=== PATIENT | female | born 1985 | race Caucasian/White ===

== ENCOUNTER → 2016-12-01 | Outpatient (CLI) | payer MEDICAID, SELFPAY ==
[~2016-12-01] MED LIST: BUPR50TA PO; CELE20TA PO; DEPA500T2 PO; GABA-282 PO; GABA-283 PO; HYDR-3363 PO; HYDRO50TAB PO; LITH300C PO; MIREIUD IU; MIRT15TA3 PO; MIRT30TA3 PO; NO MEDS; QUET400T PO; SERO1TAB PO; SERO200T PO; TOPA100T12 PO; TRAZO50TA PO
== END ==
LOC: M OUTALCOH 12:25
PROVIDERS: ATTEND Psychiatry & Neurology Psychiatry
DX: Z13.9 Encounter for screening, unspecified (principal); F11.20 Opioid dependence, uncomplicated

== ENCOUNTER → 2016-12-26 | Outpatient (RCR) | payer MEDICAID | LOC: M OUTALCOH 12-15 11:20 | PROVIDERS: ATTEND Psychiatry & Neurology Psychiatry | DX: F11.20 Opioid dependence, uncomplicated (principal); Z72.0 Tobacco use ==

== ENCOUNTER 2017-01-25 16:00 | Outpatient (RCR) | payer MEDICAID, SELFPAY ==
[~2017-01-25 16:00] MED LIST changes: -BUPR50TA PO; -GABA-282 PO; -HYDRO50TAB PO; -MIREIUD IU; -MIRT15TA3 PO; -MIRT30TA3 PO; -QUET400T PO; -TOPA100T12 PO; -TRAZO50TA PO
== END 2017-01-26 ==
LOC: M OUTALCOH 16:00
PROVIDERS: ATTEND Psychiatry & Neurology Psychiatry
DX: F11.20 Opioid dependence, uncomplicated (principal); Z72.0 Tobacco use

== ENCOUNTER 2017-02-21 10:37 | Inpatient (IN) | payer OTHER, SELFPAY ==
[~2017-02-21] VITALS: Ht 175.3 cm; Wt 82.0 kg
[2017-02-21] MEDS ORDERED: MIRT30TA3 PO (10:59)
[2017-02-21] MEDS ORDERED: QUET400T PO (10:59)
[2017-02-21] MEDS ORDERED: MIREIUD IU (11:00)
[2017-02-21 12:02] LABS: CONTROL LINE HCG INT CTR LINE PRESENT
[2017-02-21 12:04] LABS: MEAN CORPUSCULAR HEMOGLOBIN 31.9 pg (27.0-33.0); MEAN CORPUSCULAR HGB CONC 33.7 g/dl (32.0-36.5); MEAN CORPUSCULAR VOLUME 94.5 fl (80.0-96.0); RED CELL DISTRIBUTION WIDTH 12.1 % (11.5-14.5); WHITE BLOOD COUNT 13.7 10^3/uL (4.0-10.0)
[2017-02-21 12:19] LABS: METHADONE URINE NEGATIVE (NEGATIVE)
[2017-02-21 12:20] LABS: ALBUMIN 4.2 GM/DL (3.2-5.2); ALKALINE PHOSPHATASE 74 U/L (45-117); ALT/SGPT 21 U/L (12-78); ANION GAP 7 MEQ/L (8-16); AST/SGOT 21 U/L (15-37); BILIRUBIN,DIRECT 0.2 MG/DL (0.0-0.2); BILIRUBIN,TOTAL 0.6 MG/DL (0.2-1.0); BLOOD UREA NITROGEN 15 MG/DL (7-18); CALCIUM LEVEL 9.2 MG/DL (8.5-10.1); CARBON DIOXIDE LEVEL 25 MEQ/L (21-32); CHLORIDE LEVEL 102 MEQ/L (98-107); CREATININE FOR GFR 0.97 MG/DL (0.55-1.02); GLOMERULAR FILTRATION RATE > 60.0 (>60); GLUCOSE, FASTING 95 MG/DL (70-105); POTASSIUM SERUM 4.4 MEQ/L (3.5-5.1); SODIUM LEVEL 134 MEQ/L (136-145); TOTAL PROTEIN 7.7 GM/DL (6.4-8.2)
[2017-02-21] MEDS ORDERED: ACETAMINOPHEN TAB 650MG DOSE (2X325MG) PO PRN (13:45)
[2017-02-21] MEDS ORDERED: MAALOX 30 ML SUSP *UDC PO PRN (13:45)
[2017-02-21] MEDS ORDERED: MOM 30ML SUSPENSION UDC PO PRN (13:45)
[2017-02-21] MEDS ORDERED: traZODone 50 MG TAB PO PRN (13:45)
[2017-02-21] MEDS ORDERED: SERTRALINE HCL 50 MG TAB PO ONE (14:00)
[2017-02-21] MEDS ORDERED: HYDR-3363 PO (14:11)
[2017-02-21 14:45] VITALS: BP 108/68
[2017-02-21] MEDS: NICOTINE 21MG/24HR 1 EA TRANSDERMAL TD SCH (16:09)
[2017-02-21] MEDS: MIRTAZAPINE 15 MG TAB PO SCH (20:33)
[2017-02-21] MEDS: QUEtiapine FUMARATE 200 MG TAB PO SCH (20:33)
[2017-02-22 06:56] VITALS: BP 106/56
[2017-02-22] MEDS: NICOTINE 21MG/24HR 1 EA TRANSDERMAL TD SCH (08:35)
--- NOTE | 2017-02-22 08:59 | HPEPDOC ---
[facility] Medical History & Physical Date of Admission Feb 21, 2017 History and Physical PCP: Román HOLMAN ATTENDING: Dr. Sixto Montjeo HPI: 31yoF admitted to [facility] for unspecified depressive disorder, being medically examined today. No acute medical complaints today. Denies any fevers, chills, weakness, fatigue, FLOREZ, CP, SOB, cough, palpitations, abdominal pain, N/V /D or changes in bowel or bladder habits. PMHx: Schizophrenia Bipolar disorder Anxiety Depression ADHD PTSD Insomnia H/O Substance use H/O Bulemia Self mutilation poor dentition PSHX: D&C x 2 Mirena SOCHX: Resides in: [place] with a friend, recently released from incarceration. Marital Status: Kids: 4 children surrendered for adoption. Employment: unemployed Tobacco use: 1 ppd ETOH: denies Illicit Drugs: heroin, last used 05/13. Marijuana in the past. IV Drug Use: heroin. Tattoos done unprofessionally: Denies FAMHX: Mother: , related to choking per pt. Father: Unknown Siblings: 2 sisters Alive, well. One brother related to epilepsy Children: Unknown ROS: As noted in HPI, otherwise 11pt ROS of systems reviewed and remarkable only for LMP irregular related to Mirena. PE: GEN: 31 yo F, appears stated age. Well-nourished, well developed. No acute distress. Alert and oriented x 3. Rapid, pressured speech. HEENT: Normocephalic, atraumatic. Pupils are equal, round, and reactive to light. Extraocular movements are intact. No nystagmus appreciated. Sclera are nonicteric. Conjunctiva without injection. Nose midline. Nasal turbinates without bogginess. EACs both patent BL. TMs both visualized and meraz with good cone of light, no bulging or erythema. No facial asymmetry. Moist mucous membranes. Dentition poor. Pharynx pink and moist, no cobblestoning. Neck supple , trachea midline. No lymphadenopathy or thyromegaly appreciated. CHEST: Regular rate and rhythm, +S1, +S2 LUNGS: Clear to auscultation bilaterally. No wheezes, rales, or rhonchi. Breathing appears symmetric and easy. Patient is speaking in full sentences. No accessory muscle use. ABD: Round, soft, non-tender, non-distended. +Bowel sounds throughout. No rebound or guarding. No costovertebral angle tenderness. EXT: Pulses 2+ bilaterally dorsalis pedis and radial. No lower extremity edema appreciated. SKIN: [place], dry, warm. Capillary refill <2sec. No rashes. NEURO: Alert and oriented x 3. Cranial nerves III-XII are intact. No focal deficits appreciated. EKG: Pending. A&P: 31yoF admitted to [facility] for unspecified depressive disorder 1. Psych. Plan per Psychiatry. Obtain baseline EKG to assure the safety of psychiatric medications as they can prolong the QT interval. 2. Nicotine dependence. Patch available. 3. History of IVDU. Patient agrees to HIV and hepatitis screening. 4. Follow up with PCP on discharge. 5. H/O Substance use. Per psychiatry. 6. Poor dentition. No issues at this time. Arrange dental care as outpatient. 7. Leukocytosis. Patient is afebrile. Asymptomatic. Recheck CBC in a.m. 8. Hyponatremia. Sodium is noted to be 134. Oral intake has improved. Recheck BMP. 9. History of eating disorder. Patient requests ensure with meals as sometimes she is unable to eat the food on her tray. Request dietary consult. 10. Staff member Ayse present throughout exam. Vital Signs Vital Signs Date Time Temp Pulse Resp B/P (MAP) Pulse Ox O2 Delivery O2 Flow Rate FiO2 02/22/17 06:56 98.7 62 14 106/56 (73) Room Air 02/21/17 14:45 96 Laboratory Data Labs 24H Laboratory Tests 2 02/21/17 11:13: Anion Gap 7L, Glomerular Filtration Rate > 60.0, Calcium Level 9.2, Aspartate Amino Transf (AST/SGOT) 21, Alanine Aminotransferase (ALT/SGPT) 21, Alkaline Phosphatase 74, Total Bilirubin 0.6, Direct Bilirubin 0.2, Total Protein 7.7, Albumin 4.2, Albumin/Globulin Ratio 1.20, Thyroid Stimulating Hormone (TSH) 0.552, Human Chorionic Gonadotropin, Qual NEGATIVE, Salicylates Level < 1.7L, Urine Amphetamines Screen NEGATIVE, Urine Benzodiazepines Screen NEGATIVE, Urine Opiates Screen NEGATIVE, Urine Methadone Screen NEGATIVE, Acetaminophen Level < 2.0L, Urine Barbiturates Screen NEGATIVE, Urine Phencyclidine Screen NEGATIVE, Urine Cocaine Metabolite Screen NEGATIVE, Urine Cannabinoids Screen NEGATIVE, Ethyl Alcohol Level 0.004 CBC/BMP Laboratory Tests 02/21/17 11:13 Red Blood Count 4.58, Mean Corpuscular Volume 94.5, Mean Corpuscular Hemoglobin 31.9, Mean Corpuscular Hemoglobin Concent 33.7, Red Cell Distribution Width 12.1 Home Medications Scheduled Levonorgestrel (Mirena) 20 Mcg/24 Hr Iud, 20 MCG IU ASDIRECTED Mirtazapine (Mirtazapine) 30 Mg Tab, 30 MG PO QHS Quetiapine Fumerate (Quetiapine Fumarate) 400 Mg Tab, 400 MG PO QHS Scheduled PRN Hydroxyzine HCl (Hydroxyzine HCl) 25 Mg Tab, 25 MG PO Q8H PRN for ANXIETY Allergies Coded Allergies: [place] (Verified Allergy, Intermediate, hives, 02/21/17) Propoxyphene (Verified Allergy, Mild, RASH, 10/24/14) Ibuprofen (Verified Adverse Reaction, Mild, VOMIT, 04/17/15) Morphine (Unverified Adverse Reaction, Mild, NAUSEA/ITCHING, 10/24/14) Geovanna Tong Feb 22, 2017 08:59
[2017-02-22] MEDS ORDERED: SERTRALINE HCL 50 MG TAB PO SCH (09:00)
[2017-02-22] MEDS ORDERED: buPROPion 100 MG TAB PO SCH (09:00)
[2017-02-22] MEDS: TOPIRAMATE (TopAMAX) 100 MG TAB PO SCH (11:43)
[2017-02-22] MEDS: hydrOXYzine 50 MG TAB PO PRN ×2 (11:43→18:08)
[2017-02-22] MEDS ORDERED: hydrOXYzine 50 MG TAB PO SCH (13:00)
[2017-02-22 18:00] VITALS: BP 116/61
[2017-02-22] MEDS: MIRTAZAPINE 15 MG TAB PO SCH (20:32)
[2017-02-22] MEDS: QUEtiapine FUMARATE 200 MG TAB PO SCH (20:33)
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
--- NOTE | 2017-02-22 22:15 | ECGEPIP ---
Stationary ECG Study [facility] Test Date: 2017-02-22 Pat Name: ALBAN OJEDA Department: Room: [place] [address] Gender: F Lunchroom Monitor: ANJELICA : 1985 Requested By: Geovanna Tong Order Number: [id number] Reading MD: Joel Nolasco Measurements Intervals [place] Rate: 60 P: 8 CO: 161 QRS: 81 QRSD: 88 T: 54 QT: 400 QTc: 402 Interpretive Statements SINUS RHYTHM MINIMAL EARLY REPOLARIZATION NOTED COMPARED TO THE LAST 3 TRACINGS IN THE SYSTEM, NO SIGNIFICANT CHANGES BUT SLOWER HEART RATE Electronically Signed On 02-22-2017 22:15:26 EDT by Joel Nolasco
[2017-02-23 06:18] VITALS: BP 112/57
[2017-02-23] MEDS: hydrOXYzine 50 MG TAB PO PRN ×2 (06:59→13:28)
[2017-02-23 07:13] LABS: MEAN CORPUSCULAR HEMOGLOBIN 31.5 pg (27.0-33.0); MEAN CORPUSCULAR HGB CONC 33.3 g/dl (32.0-36.5); MEAN CORPUSCULAR VOLUME 94.7 fl (80.0-96.0); RED CELL DISTRIBUTION WIDTH 12.2 % (11.5-14.5); WHITE BLOOD COUNT 6.7 10^3/uL (4.0-10.0)
[2017-02-23 07:36] LABS: ANION GAP 7 MEQ/L (8-16); BLOOD UREA NITROGEN 21 MG/DL (7-18); CALCIUM LEVEL 9.1 MG/DL (8.5-10.1); CARBON DIOXIDE LEVEL 27 MEQ/L (21-32); CHLORIDE LEVEL 106 MEQ/L (98-107); CREATININE FOR GFR 1.03 MG/DL (0.55-1.02); GLOMERULAR FILTRATION RATE > 60.0 (>60); GLUCOSE, FASTING 90 MG/DL (70-105); POTASSIUM SERUM 4.1 MEQ/L (3.5-5.1); SODIUM LEVEL 140 MEQ/L (136-145)
[2017-02-23] MEDS: buPROPion 100 MG TAB PO SCH (08:40)
[2017-02-23] MEDS: TOPIRAMATE (TopAMAX) 100 MG TAB PO SCH (08:40)
[2017-02-23] MEDS: NICOTINE 21MG/24HR 1 EA TRANSDERMAL TD SCH (08:40)
--- NOTE | 2017-02-23 14:52 | MHIPNPDOC ---
[facility] Progress Note Progress Note DATE OF SERVICE: 02/23/17 HISTORY: Pt was admitted for having suicidal thoughts, she kept having nightmares about . her mother's birthday anniversary is close and his brother the same day her mother . These have been triggers for her. 02/23/17----patient was evaluated today and she says that she feels much better since she has been taking Atarax. She stated she to Wellbutrin this morning and didn't make her nervous or jittery. She was able to recall that one of her psychiatrists at the [facility] had prescribed her gabapentin before and it wasn't good for her because it decreased her anxiety levels. She is motivated to go for treatment on Monday. She says she doesn't have any support with her family but she feels completely supported by her boyfriend. VITAL SIGNS: See below. NEW TEST RESULTS: N/A CURRENT MEDICATIONS: See below. MENTAL STATUS EXAMINATION: Patient is a 31-year old female, who is alert, dressed in hospital clothes, cooperative, with good eye contact, good hygiene and rooming. Speech: Is spontaneous and fluid. Language skills are fair. Thought processes including: Intact. Thought content: She has positive thoughts about going for rehabilitation. Abstract reasoning, and computation: Fair. Description of associations: Good Description of abnormal or psychotic thoughts: Denies auditory and visual hallucinations, denies thought delusions, denies suicidal and homicidal ideation Judgment: Improving. Insight: Improving. Orientation: Oriented 3. Recent and remote memory: Intact. Attention span and concentration: Fair. Language: Normal. Fund of knowledge: Not assessed at this time. Mood: Euthymic. Affect: And full range, appropriate, reactive and congruent to mood. DIAGNOSES: 1. Adjustment disorder with depressed mood. 2. Marijuana use disorder. 3. . ASSESSMENT: Patient has improved a lot since yesterday. Her mood and affect are brighter, her anxiety has decreased approximately 80%. He is pleasant, cooperative and she is happy and motivated because she knows she is going to rehabilitation on Monday. MANAGEMENT PLAN: Will continue on the same treatment plan, but regarding medications, gabapentin has been added, 600 mg by mouth 3 times a day, because she says it was very helpful for her when she used it before and it was prescribed by one of her psychiatrists at the community [facility] TIME SPENT: 30 minutes. Vital Signs Vital Signs Date Time Temp Pulse Resp B/P (MAP) Pulse Ox O2 Delivery O2 Flow Rate FiO2 02/23/17 06:18 98.6 63 16 112/57 (75) 02/22/17 06:56 Room Air 02/21/17 14:45 96 Laboratory Data 24H Labs Laboratory Tests 2 02/23/17 06:57: Anion Gap 7L, Glomerular Filtration Rate > 60.0, Blood Urea Nitrogen 21H, Creatinine 1.03H, Sodium Level 140, Potassium Level 4.1, Chloride Level 106, Carbon Dioxide Level 27, Calcium Level 9.1 CBC/BMP Laboratory Tests 02/23/17 06:57 Red Blood Count 4.73, Mean Corpuscular Volume 94.7, Mean Corpuscular Hemoglobin 31.5, Mean Corpuscular Hemoglobin Concent 33.3, Red Cell Distribution Width 12.2 , Calcium Level 9.1 Current Medications Current Medications Acetaminophen (Tylenol Tab) 650 mg Q6HP PRN PO HEADACHE or DISCOMFORT Last administered on 02/21/17 16:09; Start 02/21/17 at 13:45; Stop 03/23/17 at 13: 44 Al Hydrox/Mg Hydrox/Simethicone (Mylanta) 30 ml Q4HP PRN PO HEARTBURN/ INDIGESTION; Start 02/21/17 at 13:45; Stop 03/23/17 at 13:44 Bupropion HCl (Wellbutrin) 100 mg DAILY PO ; Start 02/22/17 at 09:00; Stop 02/22 at 11:26; Status DC Bupropion HCl (Wellbutrin) 100 mg DAILY PO Last administered on 02/23/17 08:40 ; Start 02/23/17 at 09:00; Stop 03/25/17 at 08:59 Gabapentin (Neurontin) 600 mg TID PO ; Start 02/23/17 at 16:00; Stop 03/25/17 at 15:59 Home Med (Med Rec Complete!) ASDIRECTED XX ; Start 02/21/17 at 14:15; Stop at 14:16; Status DC Hydroxyzine HCl (Atarax) 75 mg QID PO ; Start 02/22/17 at 13:00; Stop 02/22/17 at 13:00; Status DC Hydroxyzine HCl (Atarax) 75 mg QID PRN PO ANXIETY/AGITATION Last administered on 02/23/17 13:28; Start 02/22/17 at 13:00; Stop 03/24/17 at 12:59 Magnesium Hydroxide (Milk Of Magnesia) 30 ml DAILYPRN PRN PO CONSTIPATION; Start 02/21/17 at 13:45; Stop 03/23/17 at 13:44 Mirtazapine (Remeron) 15 mg DAILY@2100 PO Last administered on 02/22/17 20:32 ; Start 02/21/17 at 21:00; Stop 03/23/17 at 20:59 Nicotine (Nicoderm Cq 21mg) 1 patch DAILY TD Last administered on 02/23/17 08: 40; Start 02/21/17 at 09:00; Stop 03/23/17 at 08:59 Quetiapine Fumarate (SEROquel) 400 mg QHS PO Last administered on 02/22/17 20: 33; Start 02/21/17 at 21:00; Stop 03/23/17 at 20:59 Sertraline HCl (Zoloft) 50 mg QAM PO ; Start 02/22/17 at 09:00; Stop 02/22/17 at 11:17; Status DC Topiramate (TopAMAX) 100 mg DAILY PO Last administered on 02/23/17 08:40; Start 02/22/17 at 09:00; Stop 03/24/17 at 08:59 Trazodone HCl (Desyrel) 50 mg QHSP PRN PO INSOMNIA Last administered on 20:33; Start 02/21/17 at 13:45; Stop 03/23/17 at 13:44 Allergies Coded Allergies: [place] (Verified Allergy, Intermediate, hives, 02/21/17) Propoxyphene (Verified Allergy, Mild, RASH, 10/24/14) Ibuprofen (Verified Adverse Reaction, Mild, VOMIT, 04/17/15) Morphine (Unverified Adverse Reaction, Mild, NAUSEA/ITCHING, 10/24/14) SURAJ PAZ MD Feb 23, 2017 14:51
[2017-02-23] MEDS: GABAPENTIN 300 MG CAP PO SCH ×2 (15:02→20:30)
[2017-02-23 18:00] VITALS: BP 139/78
[2017-02-23] MEDS: MIRTAZAPINE 15 MG TAB PO SCH (20:30)
[2017-02-23] MEDS: QUEtiapine FUMARATE 200 MG TAB PO SCH (20:31)
[2017-02-24] MEDS: hydrOXYzine 50 MG TAB PO PRN ×2 (07:46→20:36)
[2017-02-24] MEDS: buPROPion 100 MG TAB PO SCH (08:26)
[2017-02-24] MEDS: GABAPENTIN 300 MG CAP PO SCH ×3 (08:27→20:34)
[2017-02-24] MEDS: TOPIRAMATE (TopAMAX) 100 MG TAB PO SCH (08:27)
[2017-02-24] MEDS: NICOTINE 21MG/24HR 1 EA TRANSDERMAL TD SCH (08:27)
[2017-02-24] MEDS: ADDERALL 5 MG TAB PO SCH (13:46)
[2017-02-24 18:00] VITALS: BP 129/65
--- NOTE | 2017-02-24 20:13 | MHIPNPDOC ---
[facility] Progress Note Progress Note DATE OF SERVICE: 02/24/17 HISTORY: Pt was admitted for having suicidal thoughts, she kept having nightmares about . her mother's birthday anniversary is close and his brother the same day her mother . These have been triggers for her. 02/24/17-----patient reported today that she is too hyperactive, she is a lot over the place and she understands she can be disruptive. She cannot sit still and she says she misses her ADHD medication that is Adderall 30 mg by mouth daily. She requested this medication and this curriculum writer discussed with her other possibilities like Strattera but she says this medication (Strattera) never worked for her. This curriculum writer has agreed on starting her on Adderall 30 mg by mouth daily VITAL SIGNS: See below. NEW TEST RESULTS: N/A CURRENT MEDICATIONS: See below. MENTAL STATUS EXAMINATION: Patient is a 31-year old female, who is cooperative, alert, dressed in hospital clothes, talkative, hyperactive Speech: Rapid but normal in tone and volume Language skills are fair. Thought processes including: Intact, goal-directed Thought content: Focused on going to rehabilitation Abstract reasoning, and computation: Fair. Description of associations: Good Description of abnormal or psychotic thoughts: Denies auditory and visual hallucinations, denies thought delusions, denies suicidal and homicidal ideation Judgment: Improving. Insight: Improving. Orientation: Oriented 3. Recent and remote memory: Good Attention span and concentration: Fair. Language: Normal. Fund of knowledge: Not assessed at this time. Mood: Euthymic. Affect: And full range, appropriate, reactive and congruent to mood. DIAGNOSES: 1. Adjustment disorder with depressed mood. 2. Marijuana use disorder. 3. ADHD ASSESSMENT: Patient is cooperative, but she has been displaying impulsive behavior while attending groups. It's hard for her to remain still, speaks very rapidly, is impulsive and has a history of ADHD. We'll start her on Adderall 30 mg by mouth daily and will reassess tomorrow to readjust the medication dose. MANAGEMENT PLAN: Patient will continue on the same medications and will be transferred to rehabilitation treatment program on Monday. We will follow-up TIME SPENT: 30 minutes. Vital Signs Vital Signs Date Time Temp Pulse Resp B/P (MAP) Pulse Ox O2 Delivery O2 Flow Rate FiO2 02/24/17 18:00 98.7 94 18 129/65 (86) 02/22/17 06:56 Room Air 02/21/17 14:45 96 Current Medications Current Medications Acetaminophen (Tylenol Tab) 650 mg Q6HP PRN PO HEADACHE or DISCOMFORT Last administered on 02/21/17 16:09; Start 02/21/17 at 13:45; Stop 03/23/17 at 13: 44 Al Hydrox/Mg Hydrox/Simethicone (Mylanta) 30 ml Q4HP PRN PO HEARTBURN/ INDIGESTION; Start 02/21/17 at 13:45; Stop 03/23/17 at 13:44 Amphetamine/ Dextroamphetamine (Adderall) 30 mg QAM PO Last administered on 13:46; Start 02/24/17 at 09:00; Stop 03/03/17 at 08:59 Bupropion HCl (Wellbutrin) 100 mg DAILY PO ; Start 02/22/17 at 09:00; Stop 02/22 at 11:26; Status DC Bupropion HCl (Wellbutrin) 100 mg DAILY PO Last administered on 02/24/17 08:26 ; Start 02/23/17 at 09:00; Stop 03/25/17 at 08:59 Gabapentin (Neurontin) 600 mg TID PO Last administered on 02/24/17 15:45; Start 02/23/17 at 16:00; Stop 03/25/17 at 15:59 Home Med (Med Rec Complete!) ASDIRECTED XX ; Start 02/21/17 at 14:15; Stop at 14:16; Status DC Hydroxyzine HCl (Atarax) 75 mg QID PO ; Start 02/22/17 at 13:00; Stop 02/22/17 at 13:00; Status DC Hydroxyzine HCl (Atarax) 75 mg QID PRN PO ANXIETY/AGITATION Last administered on 02/24/17 07:46; Start 02/22/17 at 13:00; Stop 03/24/17 at 12:59 Magnesium Hydroxide (Milk Of Magnesia) 30 ml DAILYPRN PRN PO CONSTIPATION; Start 02/21/17 at 13:45; Stop 03/23/17 at 13:44 Mirtazapine (Remeron) 15 mg DAILY@2100 PO Last administered on 02/23/17 20:30 ; Start 02/21/17 at 21:00; Stop 03/23/17 at 20:59 Nicotine (Nicoderm Cq 21mg) 1 patch DAILY TD Last administered on 02/24/17 08: 27; Start 02/21/17 at 09:00; Stop 03/23/17 at 08:59 Quetiapine Fumarate (SEROquel) 400 mg QHS PO Last administered on 02/23/17 20: 31; Start 02/21/17 at 21:00; Stop 03/23/17 at 20:59 Sertraline HCl (Zoloft) 50 mg QAM PO ; Start 02/22/17 at 09:00; Stop 02/22/17 at 11:17; Status DC Topiramate (TopAMAX) 100 mg DAILY PO Last administered on 02/24/17 08:27; Start 02/22/17 at 09:00; Stop 03/24/17 at 08:59 Trazodone HCl (Desyrel) 50 mg QHSP PRN PO INSOMNIA Last administered on 20:33; Start 02/21/17 at 13:45; Stop 03/23/17 at 13:44 Allergies Coded Allergies: [place] (Verified Allergy, Intermediate, hives, 02/21/17) Propoxyphene (Verified Allergy, Mild, RASH, 10/24/14) Ibuprofen (Verified Adverse Reaction, Mild, VOMIT, 04/17/15) Morphine (Unverified Adverse Reaction, Mild, NAUSEA/ITCHING, 10/24/14) SURAJ PAZ MD Feb 24, 2017 20:12
[2017-02-24] MEDS: QUEtiapine FUMARATE 200 MG TAB PO SCH (20:34)
[2017-02-24] MEDS: MIRTAZAPINE 15 MG TAB PO SCH (20:34)
[2017-02-25] MEDS: hydrOXYzine 50 MG TAB PO PRN ×2 (07:29→17:26)
[2017-02-25] MEDS: NICOTINE 21MG/24HR 1 EA TRANSDERMAL TD SCH (08:20)
[2017-02-25] MEDS: GABAPENTIN 300 MG CAP PO SCH ×3 (08:21→20:33)
[2017-02-25] MEDS: buPROPion 100 MG TAB PO SCH (08:21)
[2017-02-25] MEDS: TOPIRAMATE (TopAMAX) 100 MG TAB PO SCH (08:21)
[2017-02-25] MEDS: ADDERALL 5 MG TAB PO SCH ×2 (08:22→15:45)
[2017-02-25 18:00] VITALS: BP 129/78
[2017-02-25] MEDS: MIRTAZAPINE 15 MG TAB PO SCH (20:33)
[2017-02-25] MEDS: QUEtiapine FUMARATE 200 MG TAB PO SCH (20:33)
--- NOTE | 2017-02-25 21:03 | MHIPNPDOC ---
[facility] [address] [facility] Progress Note Progress Note DATE OF SERVICE: 02/25/17 HISTORY: Pt was admitted for having suicidal thoughts, she kept having nightmares about . her mother's birthday anniversary is close and his brother the same day her mother . These have been triggers for her. Today when patient was evaluated she expressed her concerns about not being able to receive her medications while in rehabilitation. She requested more Adderall, she says that she used to take 30 mg by mouth twice a day because the dose she receives in the morning hours wears off and she needs her evening dose. She said yesterday she did well in groups after she took her morning dose of 30 mg. This signwriter contacted Mariana Davidson, maintenance planner and she says she will speak to the authorities of the rehabilitation Center where Roro is being transferred on Monday. Basically we want be able to send her on medications if they request her not to be on medications. Patient was informed that she could go to the rehabilitation Center without meds in a situation doesn 't want her to be in them VITAL SIGNS: See below. NEW TEST RESULTS: None CURRENT MEDICATIONS: See below. MENTAL STATUS EXAMINATION: Patient is a 31-year old female, who is alert, pleasant, cooperative, oriented 3, dressed in hospital clothes, with good eye contact and fair hygiene and grooming. Speech: Is pressured, fluent and spontaneous. Coherent. Language skills are normal. Thought processes including: Intact, coherent. Thought content: Focused on her transferred to rehabilitation and if she is going to be able to continue taking her medications. Abstract reasoning, and computation: Not assessed at this time. Description of associations: Good. Description of abnormal or psychotic thoughts: Denies homicidal and suicidal ideation, denies thought delusions and denies auditory and visual hallucinations. Judgment: Fair Insight: Fair Orientation: Oriented 3. Recent and remote memory: Intact. Attention span and concentration: Good. Language: Normal. Fund of knowledge: Not assessed at this time. Mood: Euthymic. Affect: For range, appropriate, and reactive, congruent to mood. DIAGNOSES: 1. Adjustment disorder with depressed mood. 2. Marijuana use disorder. 3. ADHD ASSESSMENT: Patient has pressured speech but she has not been impulsive or aggressive, no staff members have complained about her behavior lately. She was started today on Adderall 30 mg by mouth twice a day because she requested the evening dose. Her vital signs have remained stable and according to staff she attended groups and participated in them. Patient will be leaving on Monday for rehabilitation and she worries about being able to continue taking her medications once she is at the program. We will inquire on Monday if they will allow her to take her medications. MANAGEMENT PLAN: Will continue with the same medications, we'll continue to encourage her to attend groups. TIME SPENT: 30 minutes. Vital Signs Vital Signs Date Time Temp Pulse Resp B/P (MAP) Pulse Ox O2 Delivery O2 Flow Rate FiO2 02/25/17 18:00 100.0 67 16 129/78 (95) 02/22/17 06:56 Room Air 02/21/17 14:45 96 Current Medications Current Medications Acetaminophen (Tylenol Tab) 650 mg Q6HP PRN PO HEADACHE or DISCOMFORT Last administered on 02/21/17 16:09; Start 02/21/17 at 13:45; Stop 03/23/17 at 13: 44 Al Hydrox/Mg Hydrox/Simethicone (Mylanta) 30 ml Q4HP PRN PO HEARTBURN/ INDIGESTION; Start 02/21/17 at 13:45; Stop 03/23/17 at 13:44 Amphetamine/ Dextroamphetamine (Adderall) 30 mg BID@0900,1600 PO Last administered on 02/25/17 15:45; Start 02/25/17 at 16:00; Stop 03/04/17 at 15:59 Amphetamine/ Dextroamphetamine (Adderall) 30 mg QAM PO Last administered on 08:22; Start 02/24/17 at 09:00; Stop 02/25/17 at 09:53; Status DC Bupropion HCl (Wellbutrin) 100 mg DAILY PO ; Start 02/22/17 at 09:00; Stop 02/22 at 11:26; Status DC Bupropion HCl (Wellbutrin) 100 mg DAILY PO Last administered on 02/25/17 08:21 ; Start 02/23/17 at 09:00; Stop 03/25/17 at 08:59 Gabapentin (Neurontin) 600 mg TID PO Last administered on 02/25/17 20:33; Start 02/23/17 at 16:00; Stop 03/25/17 at 15:59 Home Med (Med Rec Complete!) ASDIRECTED XX ; Start 02/21/17 at 14:15; Stop at 14:16; Status DC Hydroxyzine HCl (Atarax) 75 mg QID PO ; Start 02/22/17 at 13:00; Stop 02/22/17 at 13:00; Status DC Hydroxyzine HCl (Atarax) 75 mg QID PRN PO ANXIETY/AGITATION Last administered on 02/25/17 17:26; Start 02/22/17 at 13:00; Stop 03/24/17 at 12:59 Magnesium Hydroxide (Milk Of Magnesia) 30 ml DAILYPRN PRN PO CONSTIPATION; Start 02/21/17 at 13:45; Stop 03/23/17 at 13:44 Mirtazapine (Remeron) 15 mg DAILY@2100 PO Last administered on 02/25/17 20:33 ; Start 02/21/17 at 21:00; Stop 03/23/17 at 20:59 Nicotine (Nicoderm Cq 21mg) 1 patch DAILY TD Last administered on 02/25/17 08: 20; Start 02/21/17 at 09:00; Stop 03/23/17 at 08:59 Quetiapine Fumarate (SEROquel) 400 mg QHS PO Last administered on 02/25/17 20: 33; Start 02/21/17 at 21:00; Stop 03/23/17 at 20:59 Sertraline HCl (Zoloft) 50 mg QAM PO ; Start 02/22/17 at 09:00; Stop 02/22/17 at 11:17; Status DC Topiramate (TopAMAX) 100 mg DAILY PO Last administered on 02/25/17 08:21; Start 02/22/17 at 09:00; Stop 03/24/17 at 08:59 Trazodone HCl (Desyrel) 50 mg QHSP PRN PO INSOMNIA Last administered on 20:33; Start 02/21/17 at 13:45; Stop 03/23/17 at 13:44 Allergies Coded Allergies: [place] (Verified Allergy, Intermediate, hives, 02/21/17) Propoxyphene (Verified Allergy, Mild, RASH, 10/24/14) Ibuprofen (Verified Adverse Reaction, Mild, VOMIT, 04/17/15) Morphine (Unverified Adverse Reaction, Mild, NAUSEA/ITCHING, 10/24/14) SURAJ PAZ MD Feb 25, 2017 21:03
[2017-02-26] MEDS: TOPIRAMATE (TopAMAX) 100 MG TAB PO SCH (08:04)
[2017-02-26] MEDS: NICOTINE 21MG/24HR 1 EA TRANSDERMAL TD SCH (08:04)
[2017-02-26] MEDS: ADDERALL 5 MG TAB PO SCH (08:04)
[2017-02-26] MEDS: buPROPion 100 MG TAB PO SCH (08:04)
[2017-02-26] MEDS: GABAPENTIN 300 MG CAP PO SCH ×3 (08:04→20:31)
[2017-02-26] MEDS ORDERED: traZODone 50 MG TAB PO PRN (13:15)
[2017-02-26] MEDS: hydrOXYzine 50 MG TAB PO PRN (16:01)
[2017-02-26 18:00] VITALS: BP 135/76
--- NOTE | 2017-02-26 18:20 | MHIPNPDOC ---
[facility] Progress Note Progress Note DATE OF SERVICE: 02/26/17 HISTORY: HISTORY: Pt was admitted for having suicidal thoughts, she kept having nightmares about . her mother's birthday anniversary is close and his brother the same day her mother . These have been triggers for her. 02-26-17: This morning staff reported that this patient and another patient will also has addiction problems got into a verbal argument that escalated in the professor of engineering hours. Both patients were going to be transferred to the same rehabilitation program tomorrow morning but the mother of the other patient came and said both of them couldn't be transferred to the same place because years ago apparently they exchanged drugs. One thing led to the other one and an both patients were disrespectful to one another. Roro and Emigdio asked this engineering writer in 2 days ago to be prescribed Adderall because she says she had a previous diagnosis of ADHD and she was too hyperactive in groups. Staff members had told me already that she was extremely disruptive in groups, so, I believed that we could give it a try to Adderall. She took her morning dose and later on she came to assess for the evening dose because she said she was on 30 mg by mouth twice a day because the morning dose weans off during the day and if she doesn't take the evening dose, she becomes too hyper. This engineering writer increased the dose but today I became suspicious as the patient kept asking to be transferred on her medications to rehabilitation and then when she said that if in rehabilitation they didn't give her any medications she would end up at the hospital again to get her Adderall and her other medications because she wouldn' t be able to get them This engineering writer realized then that probably she doesn't have any medications at home and her out patient provider probably has never prescribed Adderall to her and maybe some of the other medications haven't been prescribed either or probably she has not been taking them regularly but most likely she doesn't have them at home. When I heard that this patient and the other patient were exchanging drugs years ago, I became suspicious again and I thought maybe she wanted more Adderall to give it to the other patient. Roro never improved with Adderall, she became more impulsive and she was still hyperactive and it was because of that reason that I decided to discontinue it. I knew she was going to become agitated and she did. She became verbally aggressive towards me and towards the other patient because I mentioned to her that she was not improving with Adderall, she was becoming more impulsive, that she had gotten into the argument with the other patient and she has being going into the other patient's room to get the other patients [place] even when he was with the authorization of the other patient but Roro should have known that it is not allowed at the inpatient mental health unit for one patient going into other patient's rooms and this proved that she was being impulsive. She didn't accept the reasons that I gave her to discontinue the Adderall, immediately she assumed it was the the patient with whom she argued who had told me she was going into her room and I explained to her it was not fact who told me, it wants someone else. Staff had to intervene, she was about to be coded and finally she was able to calm down. VITAL SIGNS: See below. NEW TEST RESULTS: N/A CURRENT MEDICATIONS: See below. MENTAL STATUS EXAMINATION: Patient is a 31-year old female, who is alert, anxious, with fair eye contact, fair hygiene and grooming. Speech: Is normal in tone and volume but not in rate. Pressured speech. Language skills are Normal Thought processes including: Coherent, goal directed Thought content: Focused on her medications upon discharge (when she is transferred to rehabilitation program). She states it will and transfer her with her medications to the rehabilitation program we might end up with her as a patient when she finishes her rehabilitation program. Abstract reasoning, and computation: Not assessed at this time. Description of associations: Good. Description of abnormal or psychotic thoughts: Denies thought delusions, denies auditory and visual hallucinations denies homicidal and suicidal ideation. Judgment: Poor. Insight: Poor. Orientation: Oriented 3. Recent and remote memory: Intact. Attention span and concentration: Fair. Language: Profane language. Fund of knowledge: Fair. Mood: Irritable, anxious, angry. Affect: Mood congruent, irritable, anxious. DIAGNOSES: 1. Adjustment disorder with depressed mood. 2. Marijuana use disorder. 3. ADHD ASSESSMENT: Patient is still volatile, she angers very easily, becomes very agitated, swears, uses profane language, verbally attacks other people. The plan continues to be to transfer her to rehabilitation program tomorrow MANAGEMENT PLAN: Medications have been adjusted, Seroquel has been increased and so has trazodone at bedtime. We will follow-up TIME SPENT: 30 minutes. Vital Signs Vital Signs Date Time Temp Pulse Resp B/P (MAP) Pulse Ox O2 Delivery O2 Flow Rate FiO2 02/25/17 18:00 100.0 67 16 129/78 (95) 02/22/17 06:56 Room Air 02/21/17 14:45 96 Current Medications Current Medications Acetaminophen (Tylenol Tab) 650 mg Q6HP PRN PO HEADACHE or DISCOMFORT Last administered on 02/21/17 16:09; Start 02/21/17 at 13:45; Stop 03/23/17 at 13: 44 Al Hydrox/Mg Hydrox/Simethicone (Mylanta) 30 ml Q4HP PRN PO HEARTBURN/ INDIGESTION; Start 02/21/17 at 13:45; Stop 03/23/17 at 13:44 Amphetamine/ Dextroamphetamine (Adderall) 30 mg BID@0900,1600 PO Last administered on 02/26/17 08:04; Start 02/25/17 at 16:00; Stop 02/26/17 at 11:43 ; Status DC Amphetamine/ Dextroamphetamine (Adderall) 30 mg QAM PO Last administered on 08:22; Start 02/24/17 at 09:00; Stop 02/25/17 at 09:53; Status DC Amphetamine/ Dextroamphetamine (Adderall) 30 mg QAM PO ; Start 02/27/17 at 09:00 ; Stop 03/06/17 at 08:59; Status Cancel Bupropion HCl (Wellbutrin) 100 mg DAILY PO ; Start 02/22/17 at 09:00; Stop 02/22 at 11:26; Status DC Bupropion HCl (Wellbutrin) 100 mg DAILY PO Last administered on 02/26/17 08:04 ; Start 02/23/17 at 09:00; Stop 03/25/17 at 08:59 Gabapentin (Neurontin) 600 mg TID PO Last administered on 02/26/17 15:58; Start 02/23/17 at 16:00; Stop 03/25/17 at 15:59 Home Med (Med Rec Complete!) ASDIRECTED XX ; Start 02/21/17 at 14:15; Stop at 14:16; Status DC Hydroxyzine HCl (Atarax) 75 mg QID PO ; Start 02/22/17 at 13:00; Stop 02/22/17 at 13:00; Status DC Hydroxyzine HCl (Atarax) 75 mg QID PRN PO ANXIETY/AGITATION Last administered on 02/25/17 17:26; Start 02/22/17 at 13:00; Stop 02/26/17 at 13:02; Status DC Hydroxyzine HCl (Atarax) 100 mg QID PRN PO ANXIETY/AGITATION Last administered on 02/26/17 16:01; Start 02/26/17 at 13:15; Stop 03/28/17 at 13:14 Magnesium Hydroxide (Milk Of Magnesia) 30 ml DAILYPRN PRN PO CONSTIPATION; Start 02/21/17 at 13:45; Stop 03/23/17 at 13:44 Mirtazapine (Remeron) 15 mg DAILY@2100 PO Last administered on 02/25/17 20:33 ; Start 02/21/17 at 21:00; Stop 03/23/17 at 20:59 Nicotine (Nicoderm Cq 21mg) 1 patch DAILY TD Last administered on 02/26/17 08: 04; Start 02/21/17 at 09:00; Stop 03/23/17 at 08:59 Quetiapine Fumarate (SEROquel) 400 mg QHS PO Last administered on 02/25/17 20: 33; Start 02/21/17 at 21:00; Stop 03/23/17 at 20:59 Sertraline HCl (Zoloft) 50 mg QAM PO ; Start 02/22/17 at 09:00; Stop 02/22/17 at 11:17; Status DC Topiramate (TopAMAX) 100 mg DAILY PO Last administered on 02/26/17 08:04; Start 02/22/17 at 09:00; Stop 03/24/17 at 08:59 Trazodone HCl (Desyrel) 50 mg QHSP PRN PO INSOMNIA Last administered on 20:33; Start 02/21/17 at 13:45; Stop 02/26/17 at 13:03; Status DC Trazodone HCl (Desyrel) 150 mg QHSP PRN PO INSOMNIA; Start 02/26/17 at 13:15; Stop 03/28/17 at 13:14 Allergies Coded Allergies: [place] (Verified Allergy, Intermediate, hives, 02/21/17) Propoxyphene (Verified Allergy, Mild, RASH, 10/24/14) Ibuprofen (Verified Adverse Reaction, Mild, VOMIT, 04/17/15) Morphine (Unverified Adverse Reaction, Mild, NAUSEA/ITCHING, 10/24/14) SURAJ PAZ MD Feb 26, 2017 18:20
[2017-02-26] MEDS: MIRTAZAPINE 15 MG TAB PO SCH (20:30)
[2017-02-26] MEDS: QUEtiapine FUMARATE 200 MG TAB PO SCH (20:31)
[2017-02-27] MEDS: hydrOXYzine 50 MG TAB PO PRN (07:22)
[2017-02-27] MEDS ORDERED: TOPA100T12 PO (07:44)
[2017-02-27] MEDS ORDERED: HYDRO50TAB PO (07:44)
[2017-02-27] MEDS ORDERED: BUPR50TA PO (07:44)
[2017-02-27] MEDS ORDERED: TRAZO50TA PO (07:44)
[2017-02-27] MEDS ORDERED: GABA-282 PO (07:44)
[2017-02-27] MEDS ORDERED: MIRT15TA3 PO (07:44)
[2017-02-27] MEDS: TOPIRAMATE (TopAMAX) 100 MG TAB PO SCH (08:09)
[2017-02-27] MEDS: buPROPion 100 MG TAB PO SCH (08:09)
[2017-02-27] MEDS: NICOTINE 21MG/24HR 1 EA TRANSDERMAL TD SCH (08:09)
[2017-02-27] MEDS: GABAPENTIN 300 MG CAP PO SCH (08:09)
[2017-02-27] MEDS ORDERED: ADDERALL 5 MG TAB PO SCH (09:00)
--- NOTE | 2017-02-27 21:05 | MHDSPDOC ---
[facility] Discharge Summary Discharge Summary DATE OF ADMISSION: Feb 21, 2017 at 13:35 DATE OF DISCHARGE: Feb 27, 2017 at 09:10 DISCHARGE DIAGNOSES: 1. Adjustment disorder with depressed mood. 2. Marijuana use disorder. 3. ADHD REASON FOR ADMISSION: Pt was admitted for having suicidal thoughts, she kept having nightmares about . her mother's birthday anniversary is close and his brother the same day her mother . These have been triggers for her. HISTORY OF THE PRESENT ILLNESS: Pt was laying in bed when TW approached her and she was not happy about it. She expressed she was not going to talk to me, she complained about having a headache and being very upset. Her roommate suggested it wouldhelp her not to have light in the room because this was worsening her migraine headaches. Pt reported that she was recently released from group home and is currently on parole. She reports last week she tested positive for marijuana and was told that she was going to be violated. Pt also reports dealing with the anniversary of her mother's . Pt stated that all this stress built up and she just couldn't cope. She reports having suicidal thoughts. Pt also reports she was thinking about cutting. Pt stated that she told her president and chief commercial officer this and was instructed to come into the parole office prior to coming to ED. Pt stated that she feels that her P.O. doesn't care and doesn't allow her to breathe. Pt states that she currently has no SI, depression or anxiety at this time. She reports that she is excited about going to [facility] and stated that she will be compliant with meds and unit programming until her transfer. She reported no other issues or concerns and is able to CFS. CONSULTANTS INVOLVED: None TREATMENT AND PROGRESS ON THE UNIT : Patient was very unstable but she was a the inpatient mental health unit, the first day she refused to get up when this fiction and nonfiction prose writer went to talk to her to her room and eventually she decided to get up because she said that "I might as well get over it". On the first evaluation she was very anxious, irritable and edgy. She was started on the medications that she reported she has been using, Wellbutrin amongst them. She also said that she was on Seroquel and she was started on Seroquel as well. A she informed me that previously she was on Adderall because she has been diagnosed with ADHD as a child and that she has been told that she was being disruptive in groups because she was too hyperactive and she was interrupting them. This fiction and nonfiction prose writer decided to give it a try to bilateral and see if she had a good response to it and improved on it. Later on she came to ask for more Adderall because she said that she was on 30 mg twice a day because her morning dose used to wean off and at night she was too hyper. This fiction and nonfiction prose writer decided to give it a trial because she was going to go to the rehabilitation program and I thought they could deal with that situation over there or that she could be tapered off medication before being transferred to the rehabilitation program. Unfortunately on Monday she became extremely irritable, she got into an argument with another patient will also has addiction problems and they both were disrespectful to each other. These fiction and nonfiction prose writer became suspicious about her insistence on being discharged from her medications to the rehabilitation program because she said that was at the rehabilitation program probably they were not on a give her any medications and once she became discharged from that program she probably will need to be readmitted that the inpatient mental health unit because she was not going to have her medications. It may miss suspicious because I realize that she didn't have Adderall at home and probably she didn't have any of those medications at home so probably nobody had prescribed them recently. This fiction and nonfiction prose writer explained to her that I needed to discontinue the Adderall because she was worse with it that without it, she was extremely impulsive, she has gotten into a fight with the other patient she was not being respectful of the inpatient mental health unit only see that says that forbids patient's going into other patient's rooms, and she has been doing it to take a shampoo of the other patient with whom she had an argument. It is true that the other patient had allowed her to do it but she should have fault the inpatient mental health unit rules and she didn't, and that made me think that she was impulsive. When I was explaining this to her, she became agitated and she had an angry outburst when she yelled and cursed at this fiction and nonfiction prose writer. She was able to calm down after a while. She was transferred to the rehabilitation program today, she was not suicidal, not homicidal and not psychotic when she was transferred. HOSPITAL COURSE: As above DISCHARGE ASSESSMENT: Patient is impulsive, has poor judgment and poor insight. She has no control over her emotions and I believe she she has borderline personality disorder. She was not suicidal, not homicidal and not psychotic upon discharge. MENTAL STATUS EXAMINATION ON DISCHARGE: Patient is a 31-year old female, who is alert, irritable, with poor eye contact , fair hygiene and grooming. Speech is pressured, normal in tone and volume Language skills are fair. Thought processes including: Intact. Thought content: Angry thoughts about her medication changes. Abstract reasoning, and computation: Not assessed at this time. Description of associations: Good. Description of abnormal or psychotic thoughts: Denies suicidal and homicidal ideation, denies thoughts delusions, denies auditory and visual hallucinations. Judgment: Poor. Insight: Poor. Orientation to oriented 3. Recent and remote memory: Intact. Attention span and concentration: Fair. Language: Profane language. Fund of knowledge: Not assessed at this time. Mood: Irritable, angry. Affect: Congruent to mood. MEDICATIONS ON DISCHARGE: Bupropion HCl (Wellbutrin) 100 mg DAILY PO for depression Gabapentin (Neurontin) 600 mg TID PO for anxiety/mood stabilizer Hydroxyzine HCl (Atarax) 100 mg QID PRN PO ANXIETY/AGITATION Mirtazapine (Remeron) 15 mgs. DAILY@2100 PO for insomnia Quetiapine Fumarate (SEROquel) 400 mg QHS PO mood stabilization Topiramate (TopAMAX) 100 mg DAILY PO for migraine headaches Trazodone HCl (Desyrel) 150 mg QHSP PRN PO INSOMNIA; PLAN/FOLLOWUP ARRANGEMENTS: Chemical Dependency Appt1 * [facility] * Additional information Pt will report directly to [facility] on 02/27 by 11 am for further treatment Follow Up Care Education Label * Chemical Dependency Appt2 * Chemical Dependency [facility] * Established With This Provider Yes * Additional information Pt will follow up with [facility] after discharge from [facility] Follow Up Care Education Label * Case Management * Care Coordination/Case Management/Supervision [facility] * Manager Customer Barbra * [phone] The amount of time spent in the coordination of care for this patient was approximately 30 minutes. Vital Signs/I&Os Vital Signs Date Time Temp Pulse Resp B/P (MAP) Pulse Ox O2 Delivery O2 Flow Rate FiO2 02/26/17 18:00 99.9 79 16 135/76 (95) 02/22/17 06:56 Room Air 02/21/17 14:45 96 Medications Scheduled Bupropion HCl (Bupropion HCl) 50 Mg Halftab, 100 MG PO DAILY for DEPRESSION, #14 Gabapentin (Gabapentin) 300 Mg Cap, 600 MG PO TID for MOOD, #21 Levonorgestrel (Mirena) 20 Mcg/24 Hr Iud, 20 MCG IU ASDIRECTED, (Reported) Mirtazapine (Mirtazapine) 15 Mg Tab, 15 MG PO DAILY@2100 for INSOMNIA, #10 Quetiapine Fumerate (Quetiapine Fumarate) 400 Mg Tab, 400 MG PO QHS, (Reported) Topiramate (Topamax) 100 Mg Tab, 100 MG PO DAILY for MIGRAINE, #10 Scheduled PRN Hydroxyzine HCl (Hydroxyzine HCl) 50 Mg Tab, 100 MG PO QID PRN for ANXIETY/ AGITATION, #28 Trazodone HCl (Trazodone HCl) 50 Mg Tab, 150 MG PO QHSP PRN for INSOMNIA, #21 Allergies Coded Allergies: [place] (Verified Allergy, Intermediate, hives, 02/21/17) Propoxyphene (Verified Allergy, Mild, RASH, 10/24/14) Ibuprofen (Verified Adverse Reaction, Mild, VOMIT, 04/17/15) Morphine (Unverified Adverse Reaction, Mild, NAUSEA/ITCHING, 10/24/14) SURAJ PAZ MD Feb 27, 2017 21:05
== END 2017-02-27 09:10 | DRG 754 ==
LOC: M ED 10:37 → M ED INP 13:35 → M PSY 14:35
PROVIDERS: ADMIT Psychiatry & Neurology Psychiatry; ATTEND Psychiatry & Neurology Psychiatry
DX: F43.21 Adjustment disorder with depressed mood (principal); E87.1 Hypo-osmolality and hyponatremia; R45.851 Suicidal ideations; F50.9 Eating disorder, unspecified; F12.10 Cannabis abuse, uncomplicated; Z79.899 Other long term (current) drug therapy; Z88.6 Allergy status to analgesic agent; Z88.5 Allergy status to narcotic agent; Z88.8 Allergy status to other drugs, medicaments and biological substances; F17.210 Nicotine dependence, cigarettes, uncomplicated

== ENCOUNTER 2017-04-19 13:00 | Outpatient (RCR) | payer MEDICAID ==
[~2017-04-19 13:00] MED LIST changes: +BUPR50TA PO; +GABA-282 PO; +HYDRO50TAB PO; +MIREIUD IU; +MIRT15TA3 PO; +MIRT30TA3 PO; +QUET400T PO; +TOPA100T12 PO; +TRAZO50TA PO
== END 2017-04-27 ==
LOC: M OUTALCOH 13:00
PROVIDERS: ATTEND Psychiatry & Neurology Psychiatry
DX: F11.20 Opioid dependence, uncomplicated (principal); Z72.0 Tobacco use; F12.20 Cannabis dependence, uncomplicated; F14.10 Cocaine abuse, uncomplicated; F13.10 Sedative, hypnotic or anxiolytic abuse, uncomplicated

== ENCOUNTER 2017-05-20 05:54 | Emergency (ER) | payer MEDICAID, OTHER ==
[~2017-05-20] VITALS: Ht 175.3 cm; Wt 77.3 kg
[2017-05-20] MEDS ORDERED: ADACEL/BOOSTRIX VACCINE (DIPHTH/PERTUSS/ACELL/TETANUS)0.5ML SYR (90715) IM ONE (07:15)
--- NOTE | 2017-05-20 08:05 | REP ---
Clinical: Trauma. Technique: AP, lateral, bilateral oblique views left hand . Findings: The osseous structures and joint spaces are intact and normal. There is no evidence for acute fracture or dislocation. Surrounding soft tissues are unremarkable. No subcutaneous emphysema or radiodense foreign body. Impression: Normal left hand series . No acute fracture or dislocation. Signed by Naresh Valera MD 05/20/2017 07:57 A
[2017-05-20] MEDS ORDERED: LIDOCAINE 1% MDV 20ML VIAL As Ordered ONE (08:07)
[2017-05-20] MEDS ORDERED: KEFL500C17 PO (08:38)
[2017-05-20] MEDS ORDERED: CEPHALEXIN 500 MG CAP PO ONE (08:45)
[2017-05-20 08:49] VITALS: BP 106/59
== END 2017-05-20 08:59 | disposition home or self-care (01) ==
LOC: M ED 05:54
DX: S61.412A Laceration without foreign body of left hand, initial encounter (principal); Z72.0 Tobacco use; W00.0XXA Fall on same level due to ice and snow, initial encounter; Y92.128 Other place in nursing home as the place of occurrence of the external cause; Y93.01 Activity, walking, marching and hiking; Y99.0 Civilian activity done for income or pay

== ENCOUNTER → 2017-05-31 | Outpatient (REF) | payer OTHER, MEDICAID ==
[2017-05-31 20:45] LABS: CHLAMYDIA DNA AMPLIFICATION NEGATIVE (NEGATIVE); GC DNA AMPLIFICATION NEGATIVE (NEGATIVE)
== END ==
LOC: M LAB REF 17:13
DX: Z00.00 Encounter for general adult medical examination without abnormal findings (principal)

== ENCOUNTER 2018-02-13 04:16 | Emergency (ER) | payer OTHER, MEDICAID ==
[2018-02-13] MEDS ORDERED: ONDANSETRON 4MG/2ML VIAL (J2405) As Ordered (05:18)
[2018-02-13] MEDS: ONDANSETRON 4MG/2ML VIAL (J2405) IV (05:30)
[2018-02-13 06:02] LABS: BASO % 0.5 % (0.0-1.0); HEMATOCRIT 44.6 % (36.0-47.0); HEMOGLOBIN 15.8 g/dl (12.0-15.5); IMMATURE GRANULOCYTE % 0.3 % (0-3.0); LYMPH # 1.3 10^3/uL (1.5-4.5); LYMPH % 20.9 % (24.0-44.0); MEAN CORPUSCULAR HGB CONC 35.4 g/dl (32.0-36.5); MEAN CORPUSCULAR VOLUME 87.6 fl (80.0-96.0); MONO # 0.5 10^3/uL (0.0-0.8); MONO % 8.5 % (0.0-5.0); NEUTROPHILS # 4.4 10^3/uL (1.8-7.7); NEUTROPHILS % 69.8 % (36.0-66.0); PLATELET COUNT, AUTOMATED 368 10^3/uL (150-450); RED BLOOD COUNT 5.09 10^6/uL (4.00-5.40); RED CELL DISTRIBUTION WIDTH 11.9 % (11.5-14.5); WHITE BLOOD COUNT 6.4 10^3/uL (4.0-10.0)
[2018-02-13 06:16] LABS: ALBUMIN 4.1 GM/DL (3.2-5.2); ALBUMIN/GLOBULIN RATIO 1.11 (1.00-1.93); ALKALINE PHOSPHATASE 64 U/L (45-117); ALT/SGPT 19 U/L (12-78); ANION GAP 14 MEQ/L (8-16); AST/SGOT 16 U/L (7-37); BILIRUBIN,DIRECT 0.3 MG/DL (0.0-0.2); BILIRUBIN,TOTAL 0.8 MG/DL (0.2-1.0); BLOOD UREA NITROGEN 12 MG/DL (7-18); CALCIUM LEVEL 9.2 MG/DL (8.5-10.1); CARBON DIOXIDE LEVEL 19 MEQ/L (21-32); CHLORIDE LEVEL 107 MEQ/L (98-107); CREATININE FOR GFR 1.01 MG/DL (0.55-1.30); GLOMERULAR FILTRATION RATE > 60.0 (>60); GLUCOSE, FASTING 122 MG/DL (70-100); LIPASE 284 U/L (73-393); POTASSIUM SERUM 3.7 MEQ/L (3.5-5.1); SODIUM LEVEL 140 MEQ/L (136-145); TOTAL PROTEIN 7.8 GM/DL (6.4-8.2)
[2018-02-13 06:34] LABS: HCG, SERUM QUANTITATIVE < 1.0 MIU/ML
[2018-02-13] MEDS: NS 1,000 ML IV (07:00)
[2018-02-13] MEDS: TRIMETHOBENZAMIDE HCL INJ 200 MG/2 ML VIAL (J3250) IM (07:17)
[2018-02-13] MEDS: KETOROLAC 30 MG/ML VIAL (J1885) IV (07:50)
[2018-02-13] MEDS: diazePAM 5 MG TAB PO (07:51)
[2018-02-13] MEDS ORDERED: ISOVUE-370 76% 100ML VIAL (Q9967) As Ordered (08:41)
[2018-02-13] MEDS: PROMETHAZINE INJ 25 MG/ML VIAL (J2550) IM (08:45)
[2018-02-13 09:14] LABS: KETONE, URINE AUTO RFX 2+ mg/dL (NEGATIVE); MUCUS, URINE RFX MODERATE (NEGATIVE); NITRITE, URINE AUTO RFX NEGATIVE (NEGATIVE); RBC, URINE AUTO RFX 5 /HPF (0-3); SPECIFIC GRAVITY UR AUTO RFX 1.027 (1.002-1.035); SQUAM EPITHELIAL CELL UR AURFX 25 /HPF (0-6)
[2018-02-13 09:15] LABS: AMPHETAMINES LEVEL URINE NEGATIVE (NEGATIVE); BARBITURATES URINE NEGATIVE (NEGATIVE); BENZODIAZEPINES URINE NEGATIVE (NEGATIVE); CANNABINOIDS URINE NEGATIVE (NEGATIVE); COCAINE METABOLITE URINE NEGATIVE (NEGATIVE); LEUKOCYTE ESTERASE UR AUTO RFX TRACE (NEGATIVE); METHADONE URINE NEGATIVE (NEGATIVE); OPIATES URINE NEGATIVE (NEGATIVE); PHENCYCLIDINE URINE NEGATIVE (NEGATIVE); WBC, URINE AUTO RFX 23 /HPF (0-3)
[2018-02-13] MEDS: GI COCKTAIL 50ML BTL(HYOSCYAMINE/MAALOX/LIDOCAINE VISCOUS)(1:3:1) PO (09:23)
== END 2018-02-13 10:33 | disposition home or self-care (01) ==
LOC: M ED 04:16
DX: N39.0 Urinary tract infection, site not specified (principal)
CPT/HCPCS: J2405

== ENCOUNTER → 2018-06-19 | Outpatient (CLI) | payer MEDICAID ==
[~2018-06-19] MED LIST changes: -GABA-282 PO; -GABA-283 PO; +GABA-843 PO; +GABA-845 PO; +HALO10TA2 PO; +HALO1TAB29 PO; +HORI1TAB4 PO; +HYDR50TA70 PO; +KEFL500C17 PO; +LABE10TAB PO; +MACR100C43 PO; +MED REC COMMENT; +MIRE1IUD IU; -MIREIUD IU; +NEUR300C PO; +PROP10TAB PO; +QUET1TAB9 PO; +SERO400T PO; +TIGA300C2 PO; +TYLE1TAB5 PO; +[UNRECOGNIZED DRUG - CODE] PO
== END ==
LOC: M OUTALCOH 08:15
PROVIDERS: ATTEND Psychiatry & Neurology Psychiatry
DX: Z03.89 Encounter for observation for other suspected diseases and conditions ruled out (principal)

== ENCOUNTER 2018-06-26 15:24 | Outpatient (RCR) | payer MEDICAID ==
[~2018-06-26 15:24] MED LIST changes: -HALO10TA2 PO; -HALO1TAB29 PO; -HORI1TAB4 PO; -HYDR50TA70 PO; -LABE10TAB PO; -MED REC COMMENT; -NEUR300C PO; -PROP10TAB PO; -QUET1TAB9 PO; -SERO400T PO; -TYLE1TAB5 PO; -[UNRECOGNIZED DRUG - CODE] PO
[2018-06-28] MEDS ORDERED: NEUR300C PO (18:12)
[2018-06-28] MEDS ORDERED: LABE10TAB PO ×2 (18:12)
[2018-06-28] MEDS ORDERED: SERO400T PO (18:12)
[2018-06-28] MEDS ORDERED: [UNRECOGNIZED DRUG - CODE] PO (18:12)
[2018-06-28] MEDS ORDERED: HORI1TAB4 PO (18:12)
[2018-06-29] MEDS ORDERED: MED REC COMMENT (13:35)
[2018-06-29] MEDS ORDERED: MIRE1IUD IU (13:37)
[2018-06-29] MEDS ORDERED: TYLE1TAB5 PO (13:37)
== END 2018-06-28 ==
LOC: M OUTALCOH 15:24
PROVIDERS: ATTEND Psychiatry & Neurology Psychiatry
DX: Z03.89 Encounter for observation for other suspected diseases and conditions ruled out (principal)

== ENCOUNTER 2018-06-28 14:07 | Inpatient (IN) | payer MEDICAID, OTHER ==
[~2018-06-28] VITALS: Ht 175.3 cm; Wt 73.7 kg
[2018-06-28 15:30] LABS: HEMATOCRIT 50.3 % (36.0-47.0); HEMOGLOBIN 17.1 g/dl (12.0-15.5); MEAN CORPUSCULAR HEMOGLOBIN 31.6 pg (27.0-33.0); PLATELET COUNT, AUTOMATED 346 10^3/uL (150-450); RED BLOOD COUNT 5.41 10^6/uL (4.00-5.40); WHITE BLOOD COUNT 13.6 10^3/uL (4.0-10.0)
[2018-06-28 15:44] LABS: HCG, SERUM QUALITATIVE NEGATIVE (NEGATIVE)
[2018-06-28 16:00] LABS: ACETAMINOPHEN LEVEL < 2.0 UG/ML (10.0-30.0); ALBUMIN 4.5 GM/DL (3.2-5.2); ALT/SGPT 19 U/L (12-78); BILIRUBIN,DIRECT < 0.1 MG/DL (0.0-0.2); BILIRUBIN,TOTAL 0.2 MG/DL (0.2-1.0); BLOOD UREA NITROGEN 14 MG/DL (7-18); CALCIUM LEVEL 9.1 MG/DL (8.5-10.1); CARBON DIOXIDE LEVEL 24 MEQ/L (21-32); CHLORIDE LEVEL 109 MEQ/L (98-107); CREATININE FOR GFR 1.13 MG/DL (0.55-1.30); ETHYL ALCOHOL (ETHANOL) < 0.003 % (0.000-0.010); GLOMERULAR FILTRATION RATE 59.8 (>60); GLUCOSE, FASTING 82 MG/DL (70-100); POTASSIUM SERUM 4.1 MEQ/L (3.5-5.1); SALICYLATE LEVEL < 1.7 MG/DL (5.0-30.0); SODIUM LEVEL 141 MEQ/L (136-145); TOTAL PROTEIN 8.9 GM/DL (6.4-8.2)
[2018-06-28] MEDS ORDERED: LORazepam 1 MG TAB PO ONE (16:00)
[2018-06-28 16:01] LABS: AMPHETAMINES LEVEL URINE NEGATIVE (NEGATIVE); BARBITURATES URINE NEGATIVE (NEGATIVE); BENZODIAZEPINES URINE NEGATIVE (NEGATIVE); CANNABINOIDS URINE POSITIVE (NEGATIVE); COCAINE METABOLITE URINE NEGATIVE (NEGATIVE); METHADONE URINE NEGATIVE (NEGATIVE); OPIATES URINE NEGATIVE (NEGATIVE); PHENCYCLIDINE URINE NEGATIVE (NEGATIVE)
[2018-06-28] MEDS ORDERED: LABE10TAB PO ×2 (18:12)
[2018-06-28] MEDS ORDERED: SERO400T PO (18:12)
[2018-06-28] MEDS ORDERED: NEUR300C PO (18:12)
[2018-06-28] MEDS ORDERED: HORI1TAB4 PO (18:12)
[2018-06-28] MEDS ORDERED: [UNRECOGNIZED DRUG - CODE] PO (18:12)
[2018-06-28] MEDS ORDERED: QUEtiapine FUMARATE 200 MG TAB PO ONE (19:00)
[2018-06-28] MEDS ORDERED: GABAPENTIN 300 MG CAP PO ONE (19:00)
[2018-06-28] MEDS ORDERED: LABETALOL 100 MG TAB PO ONE (19:00)
[2018-06-28] MEDS ORDERED: chlorproMAZINE 25 MG TAB (Q0161) PO ONE (19:30)
[2018-06-29] MEDS ORDERED: LORazepam 1 MG TAB PO STA (08:08)
[2018-06-29] MEDS ORDERED: GABAPENTIN 300 MG CAP PO ONE ×2 (08:15→12:00)
[2018-06-29] MEDS ORDERED: LABETALOL 100 MG TAB PO ONE (08:15)
[2018-06-29] MEDS ORDERED: LORazepam 1 MG TAB PO ONE (13:00)
[2018-06-29] MEDS ORDERED: ACETAMINOPHEN TAB 650MG DOSE (2X325MG) PO PRN (13:15)
[2018-06-29] MEDS ORDERED: MAALOX 30 ML SUSP *UDC PO PRN (13:15)
[2018-06-29] MEDS ORDERED: MOM 30ML SUSPENSION UDC PO PRN (13:15)
[2018-06-29] MEDS ORDERED: MED REC COMMENT (13:35)
[2018-06-29] MEDS ORDERED: MIRE1IUD IU (13:37)
[2018-06-29] MEDS ORDERED: TYLE1TAB5 PO (13:37)
[2018-06-29 15:01] VITALS: BP 130/85
[2018-06-29] MEDS: GABAPENTIN 300 MG CAP PO SCH ×2 (16:12→20:19)
[2018-06-29 18:00] VITALS: BP 130/82
[2018-06-29] MEDS: LABETALOL 100 MG TAB PO SCH (20:23)
[2018-06-29] MEDS: QUEtiapine FUMARATE 200 MG TAB PO SCH (20:24)
[2018-06-30] MEDS: LABETALOL 100 MG TAB PO SCH ×2 (08:07→20:06)
[2018-06-30] MEDS: GABAPENTIN 300 MG CAP PO SCH ×4 (08:08→20:04)
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
[2018-06-30] MEDS: chlorproMAZINE 25 MG TAB (Q0161) PO PRN ×2 (10:06→18:22)
[2018-06-30] MEDS ORDERED: PILL CRUSHER/CUTTER 1 EACH XX PRN (10:15)
[2018-06-30] MEDS: hydrOXYzine 50 MG TAB PO PRN (17:32)
[2018-06-30 18:00] VITALS: BP 134/82
[2018-06-30] MEDS: traZODone 50 MG TAB PO PRN (20:04)
[2018-06-30] MEDS: QUEtiapine FUMARATE 200 MG TAB PO SCH (20:04)
[2018-06-30 20:06] LABS: CHLAMYDIA DNA AMPLIFICATION NEGATIVE (NEGATIVE); GC DNA AMPLIFICATION NEGATIVE (NEGATIVE)
[2018-07-01] MEDS: hydrOXYzine 50 MG TAB PO PRN ×2 (05:42→16:01)
[2018-07-01 06:44] VITALS: BP 125/80
[2018-07-01 07:05] LABS: BASO # 0.1 10^3/uL (0.0-0.2); BASO % 0.8 % (0.0-1.0); EOS # 0.1 10^3/uL (0.0-0.50); EOS % 1.1 % (0.0-3.0); HEMATOCRIT 44.5 % (36.0-47.0); HEMOGLOBIN 15.2 g/dl (12.0-15.5); LYMPH # 2.1 10^3/uL (1.5-4.5); MEAN CORPUSCULAR HEMOGLOBIN 31.6 pg (27.0-33.0); MEAN CORPUSCULAR HGB CONC 34.2 g/dl (32.0-36.5); MEAN CORPUSCULAR VOLUME 92.5 fl (80.0-96.0); MONO # 0.8 10^3/uL (0.0-0.8); MONO % 9.7 % (0.0-5.0); NEUTROPHILS # 5.1 10^3/uL (1.8-7.7); NEUTROPHILS % 61.9 % (36.0-66.0); PLATELET COUNT, AUTOMATED 337 10^3/uL (150-450); RED BLOOD COUNT 4.81 10^6/uL (4.00-5.40); WHITE BLOOD COUNT 8.2 10^3/uL (4.0-10.0)
[2018-07-01] MEDS: chlorproMAZINE 25 MG TAB (Q0161) PO PRN (08:09)
[2018-07-01] MEDS: LABETALOL 100 MG TAB PO SCH ×2 (08:09→20:05)
[2018-07-01] MEDS: GABAPENTIN 300 MG CAP PO SCH ×4 (08:10→20:06)
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
[2018-07-01] MEDS: PROPRANOLOL 10 MG TAB PO SCH ×3 (08:56→20:06)
--- NOTE | 2018-07-01 12:06 | HPE ---
DATE OF ADMISSION: 06/29/2018 HISTORY OF PRESENT ILLNESS: Please refer to the psychiatric history and evaluation for further details on this admission. This examination and history is intended for medical issues which may need treatment, followup or consultation on this 32-year-old female. PRIMARY CARE PROVIDER: RIVER Barton ALLERGIES: IBUPROFEN, LITHIUM, MORPHINE, NICOTINE, PROPOXYPHENE. SOCIAL HISTORY: She is . She lives in [place]. She has four children which have been surrendered for adoption. She is unemployed. ETOH - none. Smokes - one pack of cigarettes per day. Recreational drug use - heroin last used April of 2016. She occasionally smokes marijuana. FAMILY HISTORY: Mother relating to choking per the patient. Father unknown. PAST MEDICAL HISTORY: Schizophrenia. Bipolar disorder. Anxiety. Depression. Attention deficit hyperactivity disorder (ADHD). Posttraumatic stress disorder (PTSD). Insomnia. History of substance abuse. History of bulimia. Self mutilation. Poor dentition. Migraines. PAST SURGICAL HISTORY: Dilation and curettage times two. HOME MEDICATIONS: - gabapentin 900 mg by mouth every 6 hours. - labetalol 125 ng by mouth every morning. 150 mg by mouth every night. - Seroquel 400 mg by mouth nightly - She has a Mirena intrauterine device (IUD). - Tylenol PM extra strength 50/25 one tablet by mouth nightly, as needed for sleep. LABORATORY DATA: White count 13.6, hemoglobin 17.1, hematocrit 50.3, platelets 326. Sodium 141, potassium 4.1, chloride 109, CO2 24, BUN 14, creatinine 1.13. Toxicology was positive for cannabinoids. REVIEW OF SYSTEMS: 10-systems review was done and was unremarkable. Patient requested a nutrition consult as she states she is bulimic and would like some different kinds of shakes and Ensure as she has difficulty eating food and we will order that. She requests HIV testing and sexually transmitted disease (STDs) testing. She has no discharge or problems but would like to be tested. Those will be ordered. PHYSICAL EXAMINATION: 32-year-old cooperative female with pressured speech in no acute distress. Height 69 inches, weight 75 kg, body mass index (BMI) 24.4. Blood pressure 134/82, pulse 88, respirations 18, temperature 99.3. The patient is alert and oriented times three. Pupils equal and reactive to light. Extraocular movements intact. Cornea and sclera clear. Conjunctiva normal. No facial asymmetry. Pharynx, tongue, and gums pink and moist. Tongue is midline. TMs pearly bilaterally. Neck is supple, without lymphadenopathy. No thyromegaly. No goiter Chest clear to auscultation, without wheeze or retraction. Heart is regular. Abdomen benign. Bowel sounds positive. /Rectal: Not done. Extremities show equal strength. Full range of motion. no cyanosis, clubbing or edema. Peripheral pulses equal and palpable bilaterally. Skin is warm and dry. Capillary refill less than 2 seconds. No rashes. Cranial nerves II through VII grossly intact. IMPRESSION AND PLAN: 1. Psychiatric: Plan per psychiatry. 2. Leukocytosis, elevated hemoglobin and hematocrit: Patient encouraged to drink fluids. 3. Creatinine elevated 1.13. Encouraged by mouth drinking. Recheck CBC and BMP in the morning. 4. Nicotine dependence. Patient did not wish patch at this time. 5. Request for HIV, gonorrhea, chlamydia and syphilis have been ordered. 6. Nutrition consultation.
[2018-07-01] MEDS: HALOPERIDOL 10 MG TAB PO SCH ×2 (16:01→20:06)
[2018-07-01 18:00] VITALS: BP 129/81
[2018-07-01] MEDS: traZODone 50 MG TAB PO PRN (20:06)
[2018-07-01] MEDS: QUEtiapine FUMARATE 200 MG TAB PO SCH (20:06)
[2018-07-02] MEDS: hydrOXYzine 50 MG TAB PO PRN ×2 (06:12→15:58)
[2018-07-02 06:40] VITALS: BP 111/66
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
[2018-07-02] MEDS: GABAPENTIN 300 MG CAP PO SCH ×4 (09:04→20:05)
[2018-07-02] MEDS: HALOPERIDOL 10 MG TAB PO SCH ×3 (09:04→20:05)
[2018-07-02] MEDS: PROPRANOLOL 10 MG TAB PO SCH ×3 (09:04→20:05)
[2018-07-02] MEDS: LABETALOL 100 MG TAB PO SCH ×2 (09:05→20:04)
[2018-07-02 10:16] LABS: HIV 1&2 SCREEN CENTAUR NEGATIVE (NEGATIVE)
[2018-07-02 18:00] VITALS: BP 104/58
[2018-07-02] MEDS: traZODone 50 MG TAB PO PRN (20:05)
[2018-07-02] MEDS: QUEtiapine FUMARATE 200 MG TAB PO SCH (20:05)
[2018-07-03 08:17] VITALS: BP 122/84
[2018-07-03] MEDS: hydrOXYzine 50 MG TAB PO PRN (08:17)
[2018-07-03] MEDS: LABETALOL 100 MG TAB PO SCH (08:17)
[2018-07-03] MEDS: HALOPERIDOL 10 MG TAB PO SCH (08:17)
[2018-07-03] MEDS: GABAPENTIN 300 MG CAP PO SCH (08:17)
[2018-07-03] MEDS: PROPRANOLOL 10 MG TAB PO SCH (08:18)
[2018-07-03] MEDS ORDERED: TRAZO50TA PO (08:33)
[2018-07-03] MEDS ORDERED: HALO1TAB29 PO (08:33)
[2018-07-03] MEDS ORDERED: HYDRO50TAB PO (08:33)
[2018-07-03] MEDS ORDERED: GABA-843 PO ×2 (08:33→11:39)
[2018-07-03] MEDS ORDERED: QUET1TAB9 PO (08:33)
[2018-07-03] MEDS ORDERED: PROP10TAB PO (08:33)
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
[2018-07-03] MEDS ORDERED: HYDR50TA70 PO (11:39)
[2018-07-03] MEDS ORDERED: HALO10TA2 PO (11:39)
--- NOTE | 2018-07-04 08:29 | ECGEPIP ---
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
== END 2018-07-03 09:08 | disposition home or self-care (01) | DRG 755 ==
LOC: M ED 14:07 → M ED INP 06-29 13:03 → M PSY 06-29 14:08 → M ED INP 07-01 20:34 → M PSY 07-01 20:37
PROVIDERS: ADMIT Psychiatry & Neurology Psychiatry; ATTEND Psychiatry & Neurology Psychiatry
DX: F43.10 Post-traumatic stress disorder, unspecified (principal); F32.9 Major depressive disorder, single episode, unspecified; F12.10 Cannabis abuse, uncomplicated; F11.11 Opioid abuse, in remission; F60.3 Borderline personality disorder; Z91.5 Personal history of self-harm; Z79.899 Other long term (current) drug therapy; Z88.5 Allergy status to narcotic agent; Z88.6 Allergy status to analgesic agent; Z88.8 Allergy status to other drugs, medicaments and biological substances; F17.210 Nicotine dependence, cigarettes, uncomplicated; Z62.810 Personal history of physical and sexual abuse in childhood; Z62.811 Personal history of psychological abuse in childhood

== ENCOUNTER 2018-11-16 17:46 | Inpatient (IN) | payer MEDICAID, OTHER, SELFPAY ==
[~2018-11-16] VITALS: Ht 175.3 cm; Wt 80.3 kg
[~2018-11-16 17:46] MED LIST changes: +HALO10TA2 PO; +HALO10TA20 PO; +HORI1TAB4 PO; +HYDR50TA70 PO; +LABE10TAB PO; +MED REC COMMENT; +NEUR300C PO; +PROP10TA55 PO; +QUET1TAB9 PO; +SERO400T PO; +TRAZ1TAB10 PO; -TRAZO50TA PO; +TYLE1TAB5 PO; +[UNRECOGNIZED DRUG - CODE] PO
[2018-11-16] MEDS ORDERED: LABE10TAB PO (18:09)
[2018-11-16] MEDS ORDERED: med rec comment (18:09)
[2018-11-16] MEDS ORDERED: GABA-843 PO (18:09)
[2018-11-16 18:29] LABS: HEMATOCRIT 44.4 % (36.0-47.0); HEMOGLOBIN 14.9 g/dl (12.0-15.5); MEAN CORPUSCULAR HEMOGLOBIN 30.5 pg (27.0-33.0); MEAN CORPUSCULAR HGB CONC 33.6 g/dl (32.0-36.5); PLATELET COUNT, AUTOMATED 441 10^3/uL (150-450); RED BLOOD COUNT 4.88 10^6/uL (4.00-5.40); WHITE BLOOD COUNT 10.8 10^3/uL (4.0-10.0)
[2018-11-16 19:06] LABS: AMPHETAMINES LEVEL URINE NEGATIVE (NEGATIVE); BARBITURATES URINE NEGATIVE (NEGATIVE); BENZODIAZEPINES URINE POSITIVE (NEGATIVE); CANNABINOIDS URINE POSITIVE (NEGATIVE); COCAINE METABOLITE URINE NEGATIVE (NEGATIVE); METHADONE URINE NEGATIVE (NEGATIVE); OPIATES URINE NEGATIVE (NEGATIVE); PHENCYCLIDINE URINE NEGATIVE (NEGATIVE)
[2018-11-16 19:08] LABS: HCG, SERUM QUALITATIVE NEGATIVE (NEGATIVE)
[2018-11-16 19:11] LABS: ACETAMINOPHEN LEVEL < 2.0 UG/ML (10.0-30.0); ALBUMIN 3.6 GM/DL (3.2-5.2); ALT/SGPT 42 U/L (12-78); BILIRUBIN,DIRECT < 0.1 MG/DL (0.0-0.2); BILIRUBIN,TOTAL 0.3 MG/DL (0.2-1.0); BLOOD UREA NITROGEN 13 MG/DL (7-18); CARBON DIOXIDE LEVEL 27 MEQ/L (21-32); CHLORIDE LEVEL 106 MEQ/L (98-107); CREATININE FOR GFR 1.25 MG/DL (0.55-1.30); ETHYL ALCOHOL (ETHANOL) < 0.003 % (0.000-0.010); GLOMERULAR FILTRATION RATE 53.2 (>60); GLUCOSE, FASTING 108 MG/DL (70-100); SALICYLATE LEVEL 1.8 MG/DL (5.0-30.0); SODIUM LEVEL 141 MEQ/L (136-145); THYROID STIMULATING HORMONE 0.328 uIU/ML (0.358-3.740); TOTAL PROTEIN 7.9 GM/DL (6.4-8.2)
[2018-11-16] MEDS ORDERED: HYDR50TA70 PO (20:27)
[2018-11-16] MEDS ORDERED: PHENobarbital 30 MG TAB PO ONE (20:30)
[2018-11-16] MEDS ORDERED: QUEtiapine FUMARATE 50 MG TAB PO ONE (21:45)
[2018-11-16] MEDS ORDERED: ACETAMINOPHEN TAB 650MG DOSE (2X325MG) PO PRN (21:45)
[2018-11-16] MEDS ORDERED: MOM 30ML SUSPENSION UDC PO PRN (21:45)
[2018-11-16] MEDS ORDERED: ONDANSETRON 4 MG ORAL DISINTEGRATING TAB (Q0162 PER 1MG) PO PRN (21:45)
[2018-11-16] MEDS ORDERED: MAALOX 30 ML SUSP *UDC PO PRN (21:45)
[2018-11-17 00:14] VITALS: BP 131/102
[2018-11-17] MEDS: cloNIDine 0.1 MG TAB PO PRN ×2 (00:26→08:40)
[2018-11-17] MEDS: hydrOXYzine 50 MG TAB PO PRN ×2 (00:26→08:40)
[2018-11-17] MEDS: traZODone 50 MG TAB PO PRN (00:58)
[2018-11-17] MEDS ORDERED: QUEtiapine FUMARATE 50 MG TAB PO ONE (01:00)
[2018-11-17] MEDS: GABAPENTIN 300 MG CAP PO SCH ×3 (11:02→20:38)
[2018-11-17] MEDS: cloNIDine 0.2 MG TAB PO PRN ×2 (11:03→16:22)
[2018-11-17] MEDS: METHADONE 5 MG TAB (S0109) PO SCH ×3 (13:59→20:38)
[2018-11-17 19:15] VITALS: BP 108/64
[2018-11-17] MEDS ORDERED: QUEtiapine FUMARATE 200 MG TAB PO SCH (21:00)
[2018-11-18] MEDS: hydrOXYzine 50 MG TAB PO PRN ×2 (06:18→17:09)
[2018-11-18 06:57] VITALS: BP 101/56
[2018-11-18] MEDS: GABAPENTIN 300 MG CAP PO SCH ×3 (08:00→21:04)
[2018-11-18] MEDS: METHADONE 5 MG TAB (S0109) PO SCH ×2 (08:00→21:08)
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
[2018-11-18] MEDS: cloNIDine 0.2 MG TAB PO PRN ×2 (11:51→21:05)
--- NOTE | 2018-11-18 12:53 | IPNPDOC ---
Text Note Date of Service The patient was seen on 11/18/18. NOTE Was called to see this patient for medical H&P. The patient would not come to the exam room and in fact refused to come out of the room at all and see me. Consequently did not see the patient and there is no exam. VS,Fishbone, I+O VS, Fishbone, I+O Vital Signs Date Time Temp Pulse Resp B/P (MAP) Pulse Ox O2 Delivery O2 Flow Rate FiO2 11/18/18 11:51 101/56 11/18/18 06:57 97.8 64 12 11/16/18 23:21 96 11/16/18 17:46 Room Air SHANNEN KENNEDY MD Nov 18, 2018 12:53
[2018-11-18 18:24] VITALS: BP 127/87
[2018-11-18] MEDS ORDERED: QUEtiapine FUMARATE 100 MG TAB PO SCH (21:00)
[2018-11-18] MEDS: NICOTINE POLACRILEX 2 MG GUM PO PRN (21:06)
[2018-11-19] MEDS: hydrOXYzine 50 MG TAB PO PRN (00:17)
[2018-11-19] MEDS: traZODone 50 MG TAB PO PRN (00:17)
--- NOTE | 2018-11-19 04:26 | MHIPN ---
DATE: 11/18/2018 The patient today states, "I am a disruption to the floor." She says that she continues to be very anxious. She does not know what to do with herself, and she feels like she needs to pace a lot. She would like for me to increase her Neurontin to prior doses, and also she says she did not sleep at all last night and wants me to increase her Seroquel. MENTAL STATUS EXAMINATION: She is alert and oriented times three. Eye contact is fair. Psychomotor activity is increased due to anxiety. She is verbally spontaneous. There is some mild flight of ideas. Patient's mood is anxious. Affect full range and appropriate. She is not psychotic, suicidal, homicidal. Concentration is fair. Memory is fair. Insight and judgment are fair. DIAGNOSIS: Unspecified depressive disorder. History of posttraumatic stress disorder (PTSD). Borderline personality disorder. Opioid use disorder. Severe cannabis use disorder. TREATMENT PLAN: At this point, we will continue to monitor the patient for continued stabilization of her mood and her anxiety levels. We will go ahead and increase the Seroquel to 300 mg nightly, and we will increase Neurontin to 900 mg three times a day. She does feel like she is dealing better with her opioid withdrawal since we started methadone. MTDD
[2018-11-19 06:51] VITALS: BP 101/58
[2018-11-19] MEDS: METHADONE 5 MG TAB (S0109) PO SCH (08:17)
[2018-11-19] MEDS: NICOTINE POLACRILEX 2 MG GUM PO PRN ×3 (08:17→21:42)
[2018-11-19] MEDS: cloNIDine 0.2 MG TAB PO PRN (08:17)
[2018-11-19] MEDS: GABAPENTIN 300 MG CAP PO SCH ×3 (08:17→21:41)
[2018-11-19] MEDS ORDERED: PROPRANOLOL 10 MG TAB PO PRN (14:30)
[2018-11-19] MEDS ORDERED: OLANZapine ORAL DISINTEGRATING TAB 5MG PO STA (15:00)
[2018-11-19 18:00] VITALS: BP 108/70
[2018-11-19] MEDS ORDERED: LURASIDONE 20 MG TAB (LATUDA) PO SCH ×2 (18:00)
[2018-11-19] MEDS: PROPRANOLOL 10 MG TAB PO PRN ×2 (18:33→23:03)
--- NOTE | 2018-11-19 19:38 | ECGEPIP ---
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 COMPARED TO THE MOST RECENT WTO TRACINGS ON 06/29/2018 AND 02/22/2017, NO REMARKABLE CHANGES Electronically Signed on 11-19-2018 19:38:26 EDT by Joel Nolasco
[2018-11-19] MEDS: QUEtiapine FUMARATE 100 MG TAB PO SCH (21:41)
[2018-11-19] MEDS: MIRTAZAPINE 15 MG TAB PO SCH (21:42)
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
[2018-11-20 06:18] VITALS: BP 110/56
[2018-11-20] MEDS: PROPRANOLOL 10 MG TAB PO PRN ×3 (07:28→20:06)
[2018-11-20] MEDS: GABAPENTIN 300 MG CAP PO SCH ×3 (08:12→20:05)
[2018-11-20] MEDS ORDERED: METHADONE 5 MG TAB (S0109) PO ONE (09:00)
[2018-11-20] MEDS: NICOTINE POLACRILEX 2 MG GUM PO PRN ×2 (13:32→17:36)
[2018-11-20] MEDS ORDERED: OLANZapine ORAL DISINTEGRATING TAB 5MG PO STA (14:48)
[2018-11-20] MEDS ORDERED: BENZTROPINE 1 MG TAB PO PRN (15:45)
[2018-11-20] MEDS: LURASIDONE 20 MG TAB (LATUDA) PO SCH (17:35)
[2018-11-20 18:00] VITALS: BP 144/98
[2018-11-20] MEDS ORDERED: LURASIDONE 20 MG TAB (LATUDA) PO SCH (18:00)
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
[2018-11-20] MEDS: QUEtiapine FUMARATE 100 MG TAB PO SCH (20:05)
[2018-11-20] MEDS: MIRTAZAPINE 15 MG TAB PO SCH (20:05)
[2018-11-20] MEDS: traZODone 50 MG TAB PO PRN (20:05)
[2018-11-21 06:12] VITALS: BP 132/62
[2018-11-21] MEDS ORDERED: METHADONE 5 MG TAB (S0109) PO ONE (08:00)
[2018-11-21] MEDS: GABAPENTIN 300 MG CAP PO SCH ×3 (08:01→20:42)
[2018-11-21] MEDS: PROPRANOLOL 10 MG TAB PO PRN ×3 (08:02→20:43)
[2018-11-21] MEDS: LURASIDONE 20 MG TAB (LATUDA) PO SCH (17:50)
[2018-11-21] MEDS: NICOTINE POLACRILEX 2 MG GUM PO PRN (17:50)
[2018-11-21 18:13] VITALS: BP 120/75
[2018-11-21] MEDS: QUEtiapine FUMARATE 100 MG TAB PO SCH (20:42)
[2018-11-21] MEDS: MIRTAZAPINE 15 MG TAB PO SCH (20:42)
[2018-11-21] MEDS: OLANZapine ORAL DISINTEGRATING TAB 5MG PO PRN (20:43)
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
[2018-11-22 06:52] VITALS: BP 101/59
[2018-11-22] MEDS: PROPRANOLOL 10 MG TAB PO PRN ×2 (07:30→19:24)
[2018-11-22] MEDS: NICOTINE POLACRILEX 2 MG GUM PO PRN ×2 (07:30→19:22)
[2018-11-22] MEDS: GABAPENTIN 300 MG CAP PO SCH ×3 (08:00→20:00)
[2018-11-22] MEDS: OLANZapine ORAL DISINTEGRATING TAB 5MG PO PRN ×2 (08:00→19:24)
[2018-11-22] MEDS: LURASIDONE HCL 40 MG TAB (LATUDA) PO SCH (08:01)
[2018-11-22] MEDS ORDERED: diphenhydrAMINE 25 MG CAP PO ONE (17:30)
[2018-11-22] MEDS: LURASIDONE 20 MG TAB (LATUDA) PO SCH (17:33)
[2018-11-22 18:56] VITALS: BP 141/93
[2018-11-22] MEDS: MIRTAZAPINE 15 MG TAB PO SCH (20:00)
[2018-11-22] MEDS: QUEtiapine FUMARATE 100 MG TAB PO SCH (20:00)
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
[2018-11-23 07:09] VITALS: BP 136/87
[2018-11-23 08:18] VITALS: BP 128/80
[2018-11-23] MEDS: LURASIDONE HCL 40 MG TAB (LATUDA) PO SCH (08:18)
[2018-11-23] MEDS: GABAPENTIN 300 MG CAP PO SCH (08:18)
[2018-11-23] MEDS: NICOTINE POLACRILEX 2 MG GUM PO PRN (08:18)
[2018-11-23] MEDS: PROPRANOLOL 10 MG TAB PO PRN (08:18)
[2018-11-23] MEDS ORDERED: HYDR50TA70 PO (11:40)
[2018-11-23] MEDS ORDERED: BENZ-52 PO (11:40)
[2018-11-23] MEDS ORDERED: GABA-843 PO ×2 (11:40→11:41)
[2018-11-23] MEDS ORDERED: LATU20TA PO (11:40)
[2018-11-23] MEDS ORDERED: NICO2GUM PO (11:40)
[2018-11-23] MEDS ORDERED: REME15TA PO (11:40)
[2018-11-23] MEDS ORDERED: ONDA4TAB6 PO (11:40)
[2018-11-23] MEDS ORDERED: LATU40TA PO (11:40)
[2018-11-23] MEDS ORDERED: TRAZ-252 PO (11:41)
[2018-11-23] MEDS ORDERED: QUET1TAB8 PO (11:41)
[2018-11-23] MEDS ORDERED: PROP10TA56 PO (11:45)
[2018-11-23] MEDS ORDERED: ZYPR10TA PO (11:48)
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
== END 2018-11-23 12:02 | disposition home or self-care (01) | DRG 753 ==
LOC: M ED 17:46 → M ED INP 21:42 → M PSY 11-17 00:15
PROVIDERS: ADMIT Psychiatry & Neurology Psychiatry; ATTEND Psychiatry & Neurology Psychiatry
DX: F31.9 Bipolar disorder, unspecified (principal); F43.10 Post-traumatic stress disorder, unspecified; F60.3 Borderline personality disorder; F12.20 Cannabis dependence, uncomplicated; F11.10 Opioid abuse, uncomplicated; G47.00 Insomnia, unspecified; Z91.5 Personal history of self-harm; Z81.8 Family history of other mental and behavioral disorders; Z62.810 Personal history of physical and sexual abuse in childhood; Z62.811 Personal history of psychological abuse in childhood; Z88.5 Allergy status to narcotic agent; Z88.6 Allergy status to analgesic agent; Z88.8 Allergy status to other drugs, medicaments and biological substances

== ENCOUNTER → 2018-11-27 | Outpatient (CLI) | payer MEDICAID ==
[~2018-11-27] MED LIST changes: +BENZ-52 PO; +LATU20TA PO; +LATU40TA PO; +NICO2GUM PO; +ONDA4TAB6 PO; +PROP10TA56 PO; +QUET1TAB8 PO; +REME15TA PO; +TRAZ-252 PO; +ZYPR10TA PO; +med rec comment
== END ==
LOC: M OUTALCOH 09:06
PROVIDERS: ATTEND Psychiatry & Neurology Psychiatry
DX: Z13.89 Encounter for screening for other disorder (principal); F11.20 Opioid dependence, uncomplicated

== ENCOUNTER 2018-12-10 11:06 | Outpatient (RCR) | payer MEDICAID | END 2018-12-26 | LOC: M OUTALCOH 11:06 | PROVIDERS: ATTEND Psychiatry & Neurology Psychiatry | DX: F11.20 Opioid dependence, uncomplicated (principal); F12.20 Cannabis dependence, uncomplicated ==

== ENCOUNTER 2021-04-27 11:58 | Inpatient (IN) | payer MEDICAID, SELFPAY ==
[~2021-04-27] VITALS: Ht 175.3 cm; Wt 70.6 kg
[~2021-04-27 11:58] MED LIST changes: +BUPR-69 PO; -BUPR50TA PO; +GABA-282 PO; +GABA-283 PO; -GABA-843 PO; -GABA-845 PO; +HYDR1TAB33 PO; -HYDRO50TAB PO; +LABE100T4 PO; -LABE10TAB PO; +MIRT-62 PO; +QUET100T2 PO; -QUET1TAB8 PO; -QUET1TAB9 PO; +QUET200T2 PO; -QUET400T PO; +QUET400T2 PO; -REME15TA PO
--- OUTSIDE RECORDS SUMMARY | 2021-04-27 12:06 | CCD ---
Author Author [facility] Organization [facility] Address Unknown Phone Unavailable Support Name Relationship Address Phone Isabel Adhikari Next Of Kin Unknown Unavailable NONE, NONE Next Of Kin Unknown Kojo PRIVATE BRANCH EXCHANGE OPERATOR, Kamille Next Of Kin [address] [place] [address] Gonzalez STEVE, Stefani Next Of Kin [address] [place], [place] [id number] Eugenio PRIVATE BRANCH EXCHANGE OPERATOR, Ade Next Of Kin [address] [place] [address] UNEMPLOYED Next Of Kin Unknown ISABEL ADHIKARI Next Of Kin [address] [place] [address] EMILIO AGUSITN Next Of Kin [address] [place] [address] CECE JUAREZ Next Of Kin [address] [place] [address] UE Next Of Kin Unknown Unavailable LAWRENCE OJEDA Next Of Kin [address] [place] [address] Unavailable MELISSA FRIEDMAN Next Of Kin Unknown Isabel Adhikari ECON [address] [facility] [address] [place] [address] Unavailable Re-disclosure Warning The records that you are about to access may contain information from federally-assisted alcohol or drug abuse programs. If such information is present, then the following federally mandated warning applies: This information has been disclosed to you from records protected by federal confidentiality rules (42 CFR part 2). The federal rules prohibit you from making any further disclosure of this information unless further disclosure is expressly permitted by the written consent of the person to whom it pertains or as otherwise permitted by 42 CFR part 2. A general authorization for the release of medical or other information is NOT sufficient for this purpose. The Federal rules restrict any use of the information to criminally investigate or prosecute any alcohol or drug abuse patient.The records that you are about to access may contain highly sensitive health information, the redisclosure of which is protected by Article 27-F of the [facility] Public Health law. If you continue you may have access to information: Regarding HIV / AIDS; Provided by facilities licensed or operated by the [facility] Office of Mental Health; or Provided by the [facility] Office for People With Developmental Disabilities. If such information is present, then the following [facility] mandated warning applies: This information has been disclosed to you from confidential records which are protected by state law. State law prohibits you from making any further disclosure of this information without the specific written consent of the person to whom it pertains, or as otherwise permitted by law. Any unauthorized further disclosure in violation of state law may result in a fine or fci sentence or both. A general authorization for the release of medical or other information is NOT sufficient authorization for further disc losure. Medications No Information Insurance Providers Payer name Policy type / Coverage type Policy ID Covered democrat ID Covered democrat's relationship to juarez Policy Juarez Plan Information [facility] [id number] Patient [id number] [facility] [id number] Patient [id number] Medicaid S [id number] S [id number] Managed Care - [facility] P [id number] S [id number] Managed Care - [facility] P [id number] S [id number] Medicaid P [id number] MEDICAID [place] [id number] Self [id number] [facility](MCAID) O [id number] S [id number] [facility] COMMUNITY [facility]AN [facility] [id number] SP [id number] Medicaid S [id number] S [id number] [facility](MCAID) O [id number] S [id number] Self Pay P UNAVAILABLE S UNAVAILA BLE [facility] [id number] SP [id number] [facility] [id number] SP [id number] [facility] [id number] SP [id number] [facility] [id number] SP [id number] [facility] [id number] SP [id number] [facility] [id number] SP [id number] SELF PAY ONLY [id number] SP [id number] SELF PAY ONLY UNAVAILABLE UNAV AILABLE MEDICAID [id number] SP [id number] [facility](MCAID) O [id number] S [id number] UN COMMUNITY [facility] [id number] SP [id number] [facility] [id number] SP [id number] 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 [id number] SP [id number] Problems, Conditions, and Diagnoses No Information Surgeries/Procedures No Information Results No Information Social History No Information
[2021-04-27] MEDS ORDERED: LORazepam 2 MG TAB PO STA (13:29)
[2021-04-27 13:32] LABS: AMPHETAMINES LEVEL URINE POSITIVE (NEGATIVE); BARBITURATES URINE NEGATIVE (NEGATIVE); BENZODIAZEPINES URINE NEGATIVE (NEGATIVE); CANNABINOIDS URINE POSITIVE (NEGATIVE); COCAINE METABOLITE URINE POSITIVE (NEGATIVE); METHADONE URINE NEGATIVE (NEGATIVE); OPIATES URINE POSITIVE (NEGATIVE); PHENCYCLIDINE URINE NEGATIVE (NEGATIVE)
[2021-04-27 13:38] LABS: HEMATOCRIT 50.5 % (36.0-47.0); HEMOGLOBIN 16.1 g/dl (12.0-15.5); MEAN CORPUSCULAR HEMOGLOBIN 28.2 pg (27.0-33.0); MEAN CORPUSCULAR HGB CONC 31.9 g/dl (32.0-36.5); MEAN CORPUSCULAR VOLUME 88.6 fl (80.0-96.0); PLATELET COUNT, AUTOMATED 425 10^3/uL (150-450); WHITE BLOOD COUNT 9.4 10^3/uL (4.0-10.0)
[2021-04-27 14:04] LABS: HCG, SERUM QUALITATIVE NEGATIVE (NEGATIVE)
[2021-04-27 14:05] LABS: ACETAMINOPHEN LEVEL < 2.0 UG/ML (10.0-30.0); ALBUMIN 4.4 GM/DL (3.2-5.2); ALT/SGPT 21 U/L (12-78); BILIRUBIN,DIRECT 0.2 MG/DL (0.0-0.2); BILIRUBIN,TOTAL 0.7 MG/DL (0.2-1.0); BLOOD UREA NITROGEN 22 MG/DL (7-18); CALCIUM LEVEL 10.2 MG/DL (8.5-10.1); CARBON DIOXIDE LEVEL 24 MEQ/L (21-32); CHLORIDE LEVEL 108 MEQ/L (98-107); CREATININE FOR GFR 1.19 MG/DL (0.55-1.30); ETHYL ALCOHOL (ETHANOL) < 0.003 % (0.000-0.010); GLOMERULAR FILTRATION RATE 55.3 (>60); GLUCOSE, FASTING 120 MG/DL (70-100); POTASSIUM SERUM 4.4 MEQ/L (3.5-5.1); SALICYLATE LEVEL 3.2 MG/DL (5.0-30.0); SODIUM LEVEL 140 MEQ/L (136-145); THYROID STIMULATING HORMONE 0.586 uIU/ML (0.358-3.740); TOTAL PROTEIN 9.8 GM/DL (6.4-8.2)
[2021-04-27 14:16] LABS: RSV AMPLIFICATION NEGATIVE (NEGATIVE)
--- OUTSIDE RECORDS SUMMARY | 2021-04-27 14:21 | CCD ---
Author Author [facility] Organization [facility] Address Unknown Phone Unavailable Support Name Relationship Address Phone Isabel Adhikari Next Of Kin Unknown Unavailable NONE, NONE Next Of Kin Unknown Kojo LINING SEWER, Kamille Next Of Kin [address] [place] [address] Gonzalez STEVE, Stefani Next Of Kin [address] [place], [place] [id number] Eugenio LINING SEWER, Ade Next Of Kin [address] [place] [address] UNEMPLOYED Next Of Kin Unknown ISABEL ADHIKARI Next Of Kin [address] [place] [id number] EMILIO AGUSTIN Next Of Kin [address] [place] [address] CECE JUAREZ Next Of Kin [address] [place] [address] UE Next Of Kin Unknown Unavailable LAWRENCE OJEDA Next Of Kin [address] [place] [address] Unavailable MELISSA FRIEDMAN Next Of Kin Unknown Isabel Adhikari ECON [address] [facility] [address] [place] [address] Unavailable Re-disclosure Warning The records that you [...] is protected by Article 27-F of the [facility] Public Health law. If you continue you may have access to information: Regarding HIV / AIDS; Provided by facilities licensed or operated by the [facility] Office of Mental Health; or Provided by the [facility] Office for People With Developmental Disabilities. If such information is present, then the following [facility] mandated warning applies: This information [...] law may result in a fine or usp sentence or both. A general authorization for the release of medical or other information is NOT sufficient authorization for further disc losure. Medications No Information Insurance Providers Payer name Policy type / Coverage type Policy ID Covered libertarian ID Covered libertarian's relationship to juarez Policy Juarez Plan Information [facility] [id number] Patient [id number] [facility] [id number] Patient [id number] Medicaid S [id number] S [id number] Managed Care - [facility] P [id number] S [id number] Managed Care - [facility] P [id number] S [id number] Medicaid P [id number] S [id number] [place]ID [place] [id number] Self [id number] [facility](MCAID) O [id number] S [id number] [facility] COMMUNITY PLAN [facility] [id number] SP [id number] Medicaid S [id number] S [id number] [facility](MCAID) O [id number] S [id number] Self Pay P UNAVAILABLE S UNAVAILA BLE [facility] [id number] SP [id number] [facility] [id number] SP [id number] [facility] [id number] SP [id number] [facility] [id number] SP [id number] [facility] [id number] SP [id number] [facility] COMMUNITY PLAN [facility] [id number] SP [id number] SELF PAY ONLY [id number] SP [id number] SELF PAY ONLY UNAVAILABLE UNAV AILABLE MEDICAID [id number] SP [id number] [facility](MCAID) O [id number] S [id number] UN COMMUNITY PLAN [facility] [id number] SP [id number] [facility] [id number] SP [id number] [facility] COMMUNITY PLAN [facility] [id number] SP [id number] MEDICAID [id number] SP [id number] SELF PAY UNAVAILABLE SP UNAVAILA BLE [facility] 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 P [id number] S [id number] PENDING [employer] INSURANCE [id number] SP [id number] SELF PAY ONLY [id number] SP [id number] [facility] [id number] SP [id number] [facility] COMMUNITY PLAN [facility] [id number] SP [id number] Problems, Conditions, and Diagnoses No Information Surgeries/Procedures No Information Results No Information Social History No Information
--- NOTE | 2021-04-27 15:13 | MHIPNPDOC ---
[facility] Progress Note Progress Note DATE OF SERVICE: 04/27/21 Patient presented by PSA, has SI for 3 days and continues to have SI with plan to jump off of structure, withdrawn in context of polysubstance use, meets criteria for involuntary admission. Vital Signs Vital Signs Date Time Temp Pulse Resp B/P (MAP) Pulse Ox O2 Delivery O2 Flow Rate FiO2 04/27/21 11:58 97.6 73 18 130/80 (97) 96 Room Air Laboratory Data 24H Labs Laboratory Tests 2 04/27/21 12:54: Nucleated Red Blood Cells % (auto) 0.0, Anion Gap 8, Glomerular Filtration Rate 55.3L, Calcium Level 10.2H, Total Bilirubin 0.7, Direct Bilirubin 0.2, Aspartate Amino Transf (AST/SGOT) 14, Alanine Aminotransferase (ALT/SGPT) 21, Alkaline Phosphatase 79, Total Protein 9.8H, Albumin 4.4, Albumin/Globulin Ratio 0.8L, Thyroid Stimulating Hormone (TSH) 0.586, Human Chorionic Gonadotropin, Qual NEGATIVE, Salicylates Level 3.2L, Acetaminophen Level < 2.0L, Ethyl Alcohol Level < 0.003 04/27/21 13:00: Urine Color DANUTA, Urine Appearance HAZY, Urine pH 7.0, Urine Specific [place] 1.033, Urine Protein 2+H, Urine Glucose (UA) NEGATIVE, Urine Ketones 1+H, Urine Blood 2+H, Urine Nitrite NEGATIVE, Urine Bilirubin NEGATIVE, Urine Urobilinogen 0.2, Urine Leukocyte Esterase NEGATIVE, Urine WBC (Auto) 2, Urine RBC (Auto) 3, Urine Hyaline Casts (Auto) 0, Urine Bacteria (Auto) NEGATIVE, Urine Squamous Epithelial Cells 4, Urine Mucus (Auto) SMALL, Urine Sperm (Auto) , Urine Opiates Screen POSITIVEH, Urine Methadone Screen NEGATIVE, Urine Barbiturates Screen NEGATIVE, Urine Phencyclidine Screen NEGATIVE, Urine Amphetamines Screen POSITIVEH, Urine Benzodiazepines Screen NEGATIVE, Urine Cocaine Metabolite Screen POSITIVEH, Urine Cannabinoids Screen POSITIVEH, Coronavirus (COVID- 19)(PCR) NEGATIVE, Influenza Type A (RT-PCR) NEGATIVE, Influenza Type B (RT-PCR) NEGATIVE, Respiratory Syncytial Virus (PCR) NEGATIVE CBC/BMP Laboratory Tests 04/27/21 12:54 Current Medications Current Medications Medications (Trade) Dose Ordered Sig/Viky Route PRN Reason Start Time Stop Time Status Last Admin Dose Admin Lorazepam (Ativan) 2 mg STAT STAT PO 04/27/21 13:29 04/27/21 13:31 DC 04/27/21 14:04 Allergies Coded Allergies: haloperidol (Verified Allergy, Severe, tongue swelling, 04/27/21) lithium (Verified Allergy, Intermediate, hives, 04/27/21) ibuprofen (Verified Adverse Reaction, Mild, vomit, 04/27/21) morphine (Verified Adverse Reaction, Mild, nausea/itching, 04/27/21) nicotine (Verified Adverse Reaction, Mild, redness, can only wear clear patch, 04/27/21) propoxyphene (Verified Adverse Reaction, Unknown, 04/27/21) PETROS PERES MD Apr 27, 2021 15:13
[2021-04-27] MEDS ORDERED: GABA-282 PO (15:15)
[2021-04-27] MEDS ORDERED: HOME MED LIST COMPLETE! XX SCH (15:15)
[2021-04-27 15:25] LABS: GC DNA AMPLIFICATION NEGATIVE (NEGATIVE)
[2021-04-27] MEDS ORDERED: MOM 30ML SUSPENSION UDC PO PRN (16:45)
[2021-04-27] MEDS ORDERED: MAALOX 30 ML SUSP *UDC PO PRN (16:45)
[2021-04-27] MEDS ORDERED: traZODone 50 MG TAB PO PRN (16:45)
[2021-04-27] MEDS ORDERED: LORazepam 2 MG TAB PO ONE (16:55)
--- NOTE | 2021-04-27 20:27 | ECGEPIP ---
[facility] - ED Test Date: 2021-04-27 Pat Name: ALBAN OJEDA Department: Room: - Gender: Female Medical Planner: KISHOR : 1985 Requested By: KESHAWN Billy Order Number: [id number] Reading MD: Derek Mcginnis Measurements Intervals [place] Rate: 66 P: 3 [place]: 134 QRS: 77 QRSD: 78 T: 40 QT: 414 QTc: 434 Interpretive Statements Normal sinus rhythm BASELINE ARTIFACT AFFECTS INTERPRETATION Electronically Signed on 04-27-2021 20:26:41 EST by Derek Mcginnis
[2021-04-27] MEDS: GABAPENTIN 300 MG CAP PO PRN (22:35)
[2021-04-27] MEDS: ACETAMINOPHEN TAB 650MG DOSE (2X325MG) PO PRN (22:35)
[2021-04-28] VITALS (7 sets, daily range): BP systolic 119–141; BP diastolic 68–88
[2021-04-28] MEDS ORDERED: ONDANSETRON 4 MG ORAL DISINTEGRATING TAB PO ONE (00:05)
[2021-04-28] MEDS: THIAMINE 100 MG TAB PO SCH ×3 (02:00→21:04)
[2021-04-28] MEDS: LORazepam 2 MG TAB PO PRN ×3 (02:26→17:05)
[2021-04-28] MEDS ORDERED: BACLOFEN 5MG PER 1/2 TABLET PO SCH (09:00)
[2021-04-28] MEDS ORDERED: cloNIDine HCL 0.1 MG/24 HR PATCH TOP SCH (09:00)
[2021-04-28] MEDS: FOLIC ACID 1 MG TAB PO SCH (09:34)
[2021-04-28] MEDS: MULTIVITAMINS/MINERALS THERAP 1 TAB PO SCH (09:34)
[2021-04-28] MEDS: GABAPENTIN 300 MG CAP PO PRN ×2 (09:34→21:04)
[2021-04-28] MEDS: ACETAMINOPHEN TAB 650MG DOSE (2X325MG) PO PRN (09:35)
[2021-04-28] MEDS ORDERED: LORazepam 2 MG TAB PO ONE (11:00)
[2021-04-28] MEDS ORDERED: cloNIDine 0.1MG TABLET PO ONE (11:05)
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
[2021-04-28] MEDS: METHADONE 5 MG TAB (S0109) PO SCH ×2 (15:09→21:04)
[2021-04-28] MEDS ORDERED: QUEtiapine FUMARATE 200 MG TAB PO SCH (21:00)
[2021-04-29 06:15] VITALS: BP 145/71
[2021-04-29] MEDS: LORazepam 2 MG TAB PO PRN ×2 (06:15→09:34)
[2021-04-29] MEDS: THIAMINE 100 MG TAB PO SCH (08:11)
[2021-04-29] MEDS: GABAPENTIN 300 MG CAP PO PRN ×2 (08:11→15:07)
[2021-04-29] MEDS: METHADONE 5 MG TAB (S0109) PO SCH ×2 (08:11→15:07)
[2021-04-29] MEDS: FOLIC ACID 1 MG TAB PO SCH (08:11)
[2021-04-29] MEDS: MULTIVITAMINS/MINERALS THERAP 1 TAB PO SCH (08:11)
[2021-04-29] MEDS ORDERED: cloNIDine 0.1MG TABLET PO SCH (09:00)
[2021-04-29 09:27] VITALS: BP 124/69
[2021-04-29] MEDS ORDERED: GABA-282 PO (12:23)
[2021-04-29] MEDS ORDERED: QUET200T2 PO (12:23)
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
[2021-04-29 13:23] VITALS: BP 145/71
== END 2021-04-29 16:38 | disposition home or self-care (01) | DRG 754 ==
LOC: M ED 11:58 → M ED INP 16:41 → M PSY 04-28 01:40
PROVIDERS: ADMIT Student in an Organized Health Care Education/Training Program; ATTEND Psychiatry & Neurology Psychiatry
DX: F32.9 Major depressive disorder, single episode, unspecified (principal); F11.23 Opioid dependence with withdrawal; F12.10 Cannabis abuse, uncomplicated; F43.10 Post-traumatic stress disorder, unspecified; F60.3 Borderline personality disorder; R45.851 Suicidal ideations; Z20.822 Contact with and (suspected) exposure to COVID-19; Z56.0 Unemployment, unspecified; Z88.5 Allergy status to narcotic agent; Z88.8 Allergy status to other drugs, medicaments and biological substances; F17.210 Nicotine dependence, cigarettes, uncomplicated; Z62.810 Personal history of physical and sexual abuse in childhood; Z62.811 Personal history of psychological abuse in childhood; Z79.899 Other long term (current) drug therapy; F41.9 Anxiety disorder, unspecified

== ENCOUNTER 2021-07-29 19:31 | Inpatient (IN) | payer MEDICAID, OTHER, SELFPAY ==
[~2021-07-29] VITALS: Ht 175.3 cm; Wt 76.4 kg
[~2021-07-29 19:31] MED LIST changes: -LATU40TA PO; +LATU40TA2 PO
[2021-07-29 20:15] LABS: BASO # 0.1 10^3/uL (0.0-0.2); EOS % 0.4 % (0.0-3.0); HEMATOCRIT 43.5 % (36.0-47.0); HEMOGLOBIN 14.2 g/dl (12.0-15.5); LYMPH % 39.3 % (24.0-44.0); MEAN CORPUSCULAR HEMOGLOBIN 29.3 pg (27.0-33.0); MEAN CORPUSCULAR HGB CONC 32.6 g/dl (32.0-36.5); MEAN CORPUSCULAR VOLUME 89.9 fl (80.0-96.0); MONO # 0.6 10^3/uL (0.0-0.8); MONO % 10.9 % (2.0-8.0); NEUTROPHILS # 2.5 10^3/uL (1.5-8.5); NEUTROPHILS % 48.2 % (36.0-66.0); PLATELET COUNT, AUTOMATED 321 10^3/uL (150-450); RED BLOOD COUNT 4.84 10^6/uL (4.00-5.40); WHITE BLOOD COUNT 5.1 10^3/uL (4.0-10.0)
[2021-07-29 20:36] LABS: HCG, SERUM QUALITATIVE NEGATIVE (NEGATIVE)
[2021-07-29 20:38] LABS: AMPHETAMINES LEVEL URINE POSITIVE (NEGATIVE); BARBITURATES URINE NEGATIVE (NEGATIVE); BENZODIAZEPINES URINE POSITIVE (NEGATIVE); CANNABINOIDS URINE POSITIVE (NEGATIVE); COCAINE METABOLITE URINE NEGATIVE (NEGATIVE); METHADONE URINE NEGATIVE (NEGATIVE); OPIATES URINE NEGATIVE (NEGATIVE); PHENCYCLIDINE URINE NEGATIVE (NEGATIVE)
[2021-07-29 20:46] LABS: ALBUMIN 3.9 GM/DL (3.2-5.2); ALT/SGPT 25 U/L (12-78); BILIRUBIN,DIRECT < 0.1 MG/DL (0.0-0.2); BILIRUBIN,TOTAL 0.3 MG/DL (0.2-1.0); BLOOD UREA NITROGEN 14 MG/DL (7-18); CALCIUM LEVEL 8.9 MG/DL (8.5-10.1); CARBON DIOXIDE LEVEL 24 MEQ/L (21-32); CHLORIDE LEVEL 109 MEQ/L (98-107); CREATININE FOR GFR 1.33 MG/DL (0.55-1.30); ETHYL ALCOHOL (ETHANOL) < 0.003 % (0.000-0.010); GLOMERULAR FILTRATION RATE 48.6 (>60); GLUCOSE, FASTING 142 MG/DL (70-100); POTASSIUM SERUM 3.7 MEQ/L (3.5-5.1); SALICYLATE LEVEL 3.5 MG/DL (5.0-30.0); SODIUM LEVEL 140 MEQ/L (136-145); TOTAL PROTEIN 8.1 GM/DL (6.4-8.2)
[2021-07-29 20:47] LABS: ACETAMINOPHEN LEVEL < 2.0 UG/ML (10.0-30.0)
[2021-07-30] MEDS ORDERED: GABAPENTIN 300 MG CAP PO ONE ×2 (00:05→01:00)
[2021-07-30] MEDS ORDERED: HOME MED LIST COMPLETE! XX SCH (00:25)
[2021-07-30] MEDS ORDERED: QUET200T2 PO (00:25)
[2021-07-30] MEDS ORDERED: GABA-282 PO (00:25)
[2021-07-30] MEDS ORDERED: QUEtiapine FUMARATE 200 MG TAB PO ONE (01:00)
[2021-07-30] MEDS: FOLIC ACID 1 MG TAB PO SCH (09:00)
[2021-07-30] MEDS ORDERED: GABAPENTIN 300 MG CAP PO SCH (09:00)
[2021-07-30] MEDS: MULTIVITAMINS/MINERALS THERAP 1 TAB PO SCH (09:00)
[2021-07-30] MEDS ORDERED: ACETAMINOPHEN TAB 650MG DOSE (2X325MG) PO PRN (13:15)
[2021-07-30] MEDS ORDERED: hydrOXYzine 50 MG TAB PO PRN (13:15)
[2021-07-30] MEDS ORDERED: traZODone 50 MG TAB PO PRN (13:15)
[2021-07-30] MEDS ORDERED: cloNIDine 0.1MG TABLET PO PRN (13:15)
[2021-07-30] MEDS ORDERED: MOM 30ML SUSPENSION UDC PO PRN (13:15)
[2021-07-30] MEDS ORDERED: MAALOX 30 ML SUSP *UDC PO PRN (13:15)
[2021-07-30 16:00] VITALS: BP 116/72
[2021-07-30] MEDS ORDERED: PROMETHAZINE INJ 25 MG/ML VIAL (J2550) IM PRN (16:00)
[2021-07-30] MEDS: GABAPENTIN 300 MG CAP PO SCH ×2 (17:24→20:21)
[2021-07-30] MEDS ORDERED: NICOTINE POLACRILEX 2 MG GUM PO PRN (17:45)
[2021-07-30] MEDS: METHADONE 5 MG TAB (S0109) PO SCH (20:19)
[2021-07-30] MEDS: THIAMINE 100 MG TAB PO SCH (20:22)
[2021-07-30] MEDS ORDERED: QUEtiapine FUMARATE 200 MG TAB PO SCH (21:00)
[2021-07-31] MEDS: METHADONE 5 MG TAB (S0109) PO SCH ×3 (08:36→20:21)
[2021-07-31] MEDS: FOLIC ACID 1 MG TAB PO SCH (08:36)
[2021-07-31] MEDS: THIAMINE 100 MG TAB PO SCH ×2 (08:36→20:21)
[2021-07-31] MEDS: GABAPENTIN 300 MG CAP PO SCH ×3 (08:36→20:21)
[2021-07-31] MEDS: MULTIVITAMINS/MINERALS THERAP 1 TAB PO SCH (08:36)
[2021-07-31] MEDS ORDERED: FLUCONAZOLE 50MG TABLET PO SCH (09:00)
[2021-07-31] MEDS: PROMETHAZINE 25 MG TAB PO PRN (15:34)
[2021-07-31 17:43] VITALS: BP 108/81
[2021-07-31] MEDS: QUEtiapine FUMARATE 100 MG TAB PO SCH (20:21)
[2021-08-01] VITALS (7 sets, daily range): BP systolic 126–152; BP diastolic 66–79
[2021-08-01] MEDS: MULTIVITAMINS/MINERALS THERAP 1 TAB PO SCH (08:32)
[2021-08-01] MEDS: THIAMINE 100 MG TAB PO SCH ×2 (08:32→21:18)
[2021-08-01] MEDS: GABAPENTIN 300 MG CAP PO SCH ×3 (08:32→21:18)
[2021-08-01] MEDS: FOLIC ACID 1 MG TAB PO SCH (08:32)
[2021-08-01] MEDS: METHADONE 5 MG TAB (S0109) PO SCH ×3 (08:33→21:18)
[2021-08-01] MEDS: LORazepam 2 MG TAB PO PRN ×2 (17:52→19:17)
[2021-08-01] MEDS: PROMETHAZINE 25 MG TAB PO PRN (17:53)
[2021-08-01] MEDS: QUEtiapine FUMARATE 100 MG TAB PO SCH (21:18)
[2021-08-02 06:57] VITALS: BP 114/56
[2021-08-02] MEDS ORDERED: DIFL50TA PO (08:19)
[2021-08-02] MEDS ORDERED: QUET300T2 PO (08:19)
[2021-08-02] MEDS ORDERED: GABA-282 PO ×2 (08:19→10:16)
[2021-08-02] MEDS: FOLIC ACID 1 MG TAB PO SCH (09:12)
[2021-08-02] MEDS: METHADONE 5 MG TAB (S0109) PO SCH (09:12)
[2021-08-02] MEDS: THIAMINE 100 MG TAB PO SCH (09:12)
[2021-08-02] MEDS: MULTIVITAMINS/MINERALS THERAP 1 TAB PO SCH (09:12)
[2021-08-02] MEDS: GABAPENTIN 300 MG CAP PO SCH (09:13)
== END 2021-08-02 10:45 | disposition home or self-care (01) | DRG 755 ==
LOC: M ED 19:31 → M ED INP 07-30 13:13 → M PSY 07-30 15:48
PROVIDERS: ADMIT Student in an Organized Health Care Education/Training Program; ATTEND Psychiatry & Neurology Psychiatry
DX: F43.10 Post-traumatic stress disorder, unspecified (principal); F11.20 Opioid dependence, uncomplicated; F15.90 Other stimulant use, unspecified, uncomplicated; Z91.51 Personal history of suicidal behavior; F17.210 Nicotine dependence, cigarettes, uncomplicated; Z79.899 Other long term (current) drug therapy; Z88.8 Allergy status to other drugs, medicaments and biological substances; R45.851 Suicidal ideations; Z91.52 Personal history of nonsuicidal self-harm; Z62.810 Personal history of physical and sexual abuse in childhood; Z62.811 Personal history of psychological abuse in childhood; F12.20 Cannabis dependence, uncomplicated; F33.1 Major depressive disorder, recurrent, moderate; Z91.19 Patient's noncompliance with other medical treatment and regimen; U07.1 COVID-19

== ENCOUNTER 2024-01-16 11:36 | Inpatient (IN) | payer MEDICAID, OTHER, SELFPAY ==
[~2024-01-16] VITALS: Ht 175.3 cm; Wt 104.3 kg
[~2024-01-16 11:36] MED LIST changes: -BENZ-52 PO; +BENZ1TAB5 PO; +DIFL50TA PO; -GABA-283 PO; +GABA-284 PO; -LABE100T4 PO; +LABE100T6 PO; -MIRT-62 PO; +MIRT-88 PO; +ONDA-282 PO; -ONDA4TAB6 PO; +QUET300T2 PO
[2024-01-16 12:36] LABS: HEMATOCRIT 44.5 % (36.0-47.0); HEMOGLOBIN 15.1 g/dl (12.0-15.5); MEAN CORPUSCULAR HEMOGLOBIN 30.2 pg (27.0-33.0); MEAN CORPUSCULAR HGB CONC 33.9 g/dl (32.0-36.5); PLATELET COUNT, AUTOMATED 360 10^3/uL (150-450); WHITE BLOOD COUNT 15.1 10^3/uL (4.0-10.0)
[2024-01-16 12:58] LABS: HCG, SERUM QUALITATIVE NEGATIVE (NEGATIVE)
[2024-01-16 12:59] LABS: ALBUMIN 3.7 G/DL (3.2-5.2); ALKALINE PHOSPHATASE 72 U/L (46-116); ALT/SGPT 19 U/L (7.0-40); AMPHETAMINES LEVEL URINE NEGATIVE (NEGATIVE); AST/SGOT 25 U/L (<34); BARBITURATES URINE NEGATIVE (NEGATIVE); BENZODIAZEPINES URINE NEGATIVE (NEGATIVE); BILIRUBIN,DIRECT 0.1 MG/DL (<0.4); BILIRUBIN,TOTAL 0.3 MG/DL (0.3-1.2); BLOOD UREA NITROGEN 13 MG/DL (9-23); CALCIUM LEVEL 9.4 MG/DL (8.5-10.1); CARBON DIOXIDE LEVEL 23 MMOL/L (20-31); CHLORIDE LEVEL 110 MMOL/L (98-107); ETHYL ALCOHOL (ETHANOL) < 0.003 % (0.000-0.010); GLOMERULAR FILTRATION RATE 59.5 (>60); GLUCOSE, FASTING 100 MG/DL (60-100); METHADONE URINE NEGATIVE (NEGATIVE); OPIATES URINE NEGATIVE (NEGATIVE); PHENCYCLIDINE URINE NEGATIVE (NEGATIVE); POTASSIUM SERUM 4.2 MMOL/L (3.5-5.1); SALICYLATE LEVEL < 3.0 MG/DL (<30); SODIUM LEVEL 137 MMOL/L (136-145); TOTAL PROTEIN 7.7 G/DL (5.7-8.2)
[2024-01-16 13:00] LABS: CANNABINOIDS URINE POSITIVE (NEGATIVE); COCAINE METABOLITE URINE POSITIVE (NEGATIVE)
[2024-01-16 13:01] LABS: THYROID STIMULATING HORMONE 0.328 uIU/ML (0.55-4.78)
[2024-01-16 13:40] VITALS: BP 160/90
[2024-01-16] MEDS: cloNIDine 0.1MG TABLET PO ONE (13:40)
[2024-01-16] MEDS: ONDANSETRON 4MG ORAL DISINTEGRATING TAB PO ONE (13:40)
[2024-01-16] MEDS ORDERED: HOME MED LIST COMPLETE! XX SCH (14:15)
[2024-01-16] MEDS ORDERED: MOM 30ML SUSPENSION UDC PO PRN (15:55)
[2024-01-16] MEDS ORDERED: MAALOX 30 ML SUSP *UDC PO PRN (15:55)
[2024-01-16] MEDS: diphenhydrAMINE 25MG CAP PO PRN (16:18)
[2024-01-16] MEDS: ACETAMINOPHEN TAB 650MG DOSE (2X325MG) PO PRN (17:56)
[2024-01-16] MEDS: OXAZEPAM 15MG CAP PO ONE (20:39)
[2024-01-16] MEDS: traZODone 50 MG TAB PO PRN (22:00)
[2024-01-17] MEDS: ONDANSETRON 4MG ORAL DISINTEGRATING TAB PO ONE (03:03)
[2024-01-17] MEDS: METOCLOPRAMIDE 5 MG TAB PO ONE (05:52)
[2024-01-17] MEDS ORDERED: cloNIDine 0.1MG TABLET PO SCH (09:00)
[2024-01-17] MEDS ORDERED: METHADONE 5MG TAB PO SCH (09:00)
[2024-01-17 11:20] VITALS: BP 160/100; TEMP 97.7; O2SAT 100
[2024-01-17] MEDS: PROMETHAZINE 25MG/ML 1ML VIAL IM ONE (11:21)
[2024-01-17] MEDS ORDERED: PROMETHAZINE 25MG/ML 1ML VIAL IM ONE (13:00)
[2024-01-18] MEDS ORDERED: METHADONE 5MG TAB PO SCH (09:00)
[2024-01-19] MEDS ORDERED: METHADONE 5MG TAB PO SCH (09:00)
== END 2024-01-17 14:00 | disposition short-term general hospital (02) | DRG 773 ==
LOC: M ED 11:36 → M ED INP 15:52 → M PSY 17:40
PROVIDERS: ADMIT Psychiatry & Neurology Child & Adolescent Psychiatry; ATTEND Psychiatry & Neurology Child & Adolescent Psychiatry
DX: F11.93 Opioid use, unspecified with withdrawal (principal); Z59.00 Homelessness unspecified; Z91.51 Personal history of suicidal behavior; Z91.52 Personal history of nonsuicidal self-harm; K92.0 Hematemesis; F14.90 Cocaine use, unspecified, uncomplicated; Z88.5 Allergy status to narcotic agent; Z88.8 Allergy status to other drugs, medicaments and biological substances; Z91.048 Other nonmedicinal substance allergy status

== ENCOUNTER 2024-01-17 11:46 | Inpatient (IN) | payer MEDICAID, SELFPAY ==
[2024-01-17] MEDS ORDERED: MORPHINE 2 MG/ML 1ML VIAL IV PRN ×2 (12:40)
[2024-01-17 14:00] VITALS: BP 124/100; TEMP 97.9; O2SAT 100
[2024-01-17] MEDS: ONDANSETRON 4MG 2ML VIAL IV PRN (14:40)
[2024-01-17] MEDS: NS 1,000 ML IV SCH (14:40)
[2024-01-17] MEDS: SUCRALFATE SUSP 1GM/10ML UD PO SCH (14:42)
[2024-01-17] MEDS: MORPHINE 2 MG/ML 1ML VIAL IV PRN ×2 (15:05→22:06)
[2024-01-17] MEDS: PANTOPRAZOLE 40MG VIAL IV SCH (18:13)
[2024-01-17] MEDS: NICOTINE 21MG/24HR 1 EA TRANSDERMAL TD SCH (18:58)
[2024-01-17 19:05] VITALS: BP 152/98
[2024-01-17 21:33] LABS: HEMOGLOBIN 14.5 g/dl (12.0-15.5); MEAN CORPUSCULAR HEMOGLOBIN 30.3 pg (27.0-33.0); MEAN CORPUSCULAR HGB CONC 34.5 g/dl (32.0-36.5); MEAN CORPUSCULAR VOLUME 87.7 fl (80.0-96.0); PLATELET COUNT, AUTOMATED 392 10^3/uL (150-450); RED BLOOD COUNT 4.79 10^6/uL (4.00-5.40); WHITE BLOOD COUNT 17.5 10^3/uL (4.0-10.0)
[2024-01-17 21:46] LABS: INR 1.09; PROTHROMBIN TIME 13.8 SECONDS (12.5-14.5)
[2024-01-17 21:59] LABS: FREE T4 1.07 NG/DL (0.89-1.76)
[2024-01-17 22:44] VITALS: BP 146/98; TEMP 99; O2SAT 97
[2024-01-17 22:51] LABS: ALBUMIN 3.6 G/DL (3.2-5.2); ALKALINE PHOSPHATASE 68 U/L (46-116); ALT/SGPT 15 U/L (7.0-40); AST/SGOT 17 U/L (<34); BILIRUBIN,TOTAL 0.6 MG/DL (0.3-1.2); BLOOD UREA NITROGEN 17 MG/DL (9-23); CALCIUM LEVEL 9.2 MG/DL (8.5-10.1); CARBON DIOXIDE LEVEL 27 MMOL/L (20-31); CHLORIDE LEVEL 107 MMOL/L (98-107); CREATININE FOR GFR 1.11 MG/DL (0.55-1.30); GLOMERULAR FILTRATION RATE 58.9 (>60); GLUCOSE, FASTING 104 MG/DL (60-100); POTASSIUM SERUM 3.8 MMOL/L (3.5-5.1); SODIUM LEVEL 142 MMOL/L (136-145); THYROGLOBULIN ANTIBODY < 15.0 U/ML (<60.0); THYROID PEROXIDASE ANTIBODY < 28.0 U/ML (<60.0); TOTAL PROTEIN 7.7 G/DL (5.7-8.2); TOTAL T3 84.7 NG/DL (60.0-181.0)
[2024-01-18 05:31] VITALS: BP 146/99; TEMP 98.3; O2SAT 98
[2024-01-18 07:09] LABS: HEMOGLOBIN 15.2 g/dl (12.0-15.5); MEAN CORPUSCULAR HEMOGLOBIN 29.6 pg (27.0-33.0); MEAN CORPUSCULAR VOLUME 89.5 fl (80.0-96.0); PLATELET COUNT, AUTOMATED 315 10^3/uL (150-450); RED BLOOD COUNT 5.14 10^6/uL (4.00-5.40); WHITE BLOOD COUNT 14.2 10^3/uL (4.0-10.0)
[2024-01-18 07:48] LABS: PROCALCITONIN 0.08 ng/ml
[2024-01-18 07:50] LABS: ALBUMIN 3.7 G/DL (3.2-5.2); ALKALINE PHOSPHATASE 71 U/L (46-116); ALT/SGPT 18 U/L (7.0-40); AST/SGOT 19 U/L (<34); BILIRUBIN,TOTAL 0.9 MG/DL (0.3-1.2); BLOOD UREA NITROGEN 18 MG/DL (9-23); CARBON DIOXIDE LEVEL 24 MMOL/L (20-31); CHLORIDE LEVEL 104 MMOL/L (98-107); CREATININE FOR GFR 1.07 MG/DL (0.55-1.30); GLOMERULAR FILTRATION RATE > 60.0 (>60); GLUCOSE, FASTING 105 MG/DL (60-100); SODIUM LEVEL 135 MMOL/L (136-145); TOTAL PROTEIN 7.7 G/DL (5.7-8.2)
[2024-01-18] MEDS ORDERED: SODIUM CHLORIDE 0.9% INJ 10 ML SYR IV PRN (09:45)
[2024-01-18] MEDS: SODIUM CHLORIDE 0.9% INJ 10 ML SYR IV SCH (10:57)
[2024-01-18 12:00] VITALS: BP 149/99; TEMP 97.8; O2SAT 98
[2024-01-18 22:58] VITALS: BP 164/98; TEMP 98.1
[2024-01-19] MEDS ORDERED: ACETAMINOPHEN TAB 650MG DOSE (2X325MG) PO PRN (01:10)
[2024-01-19 03:00] VITALS: BP 142/78; TEMP 97.6
[2024-01-19 04:07] VITALS: BP 152/77; TEMP 98.1; O2SAT 97
[2024-01-19 08:51] LABS: HEMOGLOBIN 13.9 g/dl (12.0-15.5); MEAN CORPUSCULAR HEMOGLOBIN 29.7 pg (27.0-33.0); MEAN CORPUSCULAR HGB CONC 33.9 g/dl (32.0-36.5); MEAN CORPUSCULAR VOLUME 87.6 fl (80.0-96.0); PLATELET COUNT, AUTOMATED 346 10^3/uL (150-450); RED BLOOD COUNT 4.68 10^6/uL (4.00-5.40)
[2024-01-19 09:20] LABS: ALBUMIN 3.1 G/DL (3.2-5.2); ALKALINE PHOSPHATASE 62 U/L (46-116); ALT/SGPT 12 U/L (7.0-40); AST/SGOT 13 U/L (<34); BILIRUBIN,TOTAL 0.9 MG/DL (0.3-1.2); BLOOD UREA NITROGEN 14 MG/DL (9-23); CALCIUM LEVEL 8.7 MG/DL (8.5-10.1); CARBON DIOXIDE LEVEL 26 MMOL/L (20-31); CHLORIDE LEVEL 107 MMOL/L (98-107); CREATININE FOR GFR 0.99 MG/DL (0.55-1.30); GLOMERULAR FILTRATION RATE > 60.0 (>60); GLUCOSE, FASTING 103 MG/DL (60-100); SODIUM LEVEL 138 MMOL/L (136-145); TOTAL PROTEIN 6.6 G/DL (5.7-8.2)
[2024-01-19 12:00] VITALS: BP 150/96; TEMP 99.1; O2SAT 99
[2024-01-19] MEDS: METHADONE 5MG TAB PO SCH (12:19)
[2024-01-19] MEDS: NEOSPORIN OINT 0.9 GM PKT TOP ONE (14:39)
[2024-01-19] MEDS ORDERED: PROT1TAB2 PO (14:48)
[2024-01-19] MEDS ORDERED: SUCR1TA PO (14:48)
[2024-01-19] MEDS ORDERED: NICO21PAT TD (14:48)
[2024-01-19] MEDS ORDERED: METH5TA PO (14:48)
[2024-01-19] MEDS: GABAPENTIN 300 MG CAP PO ONE (14:50)
[2024-01-19] MEDS: QUEtiapine FUMARATE 50MG TAB PO ONE (14:51)
[2024-01-22 12:27] LABS: THRYOGLOBULIN ANTIBODIES (ATA) < 1 IU/mL (< or = 1); THYROGLOBULIN QUANTITATIVE 4.7 ng/mL (2.8-40.9)
== END 2024-01-19 17:15 | DRG 241 ==
LOC: M MSPAV 14:04 → UNDODISIN 14:14
PROVIDERS: ADMIT Internal Medicine; ATTEND Internal Medicine
DX: K29.71 Gastritis, unspecified, with bleeding (principal); R45.851 Suicidal ideations; E05.90 Thyrotoxicosis, unspecified without thyrotoxic crisis or storm; F41.9 Anxiety disorder, unspecified; F32.A Depression, unspecified; K21.9 Gastro-esophageal reflux disease without esophagitis; F17.210 Nicotine dependence, cigarettes, uncomplicated; F11.23 Opioid dependence with withdrawal; Z88.5 Allergy status to narcotic agent; Z91.51 Personal history of suicidal behavior; Z88.8 Allergy status to other drugs, medicaments and biological substances; Z11.52 Encounter for screening for COVID-19; Z59.00 Homelessness unspecified; Z72.51 High risk heterosexual behavior; K92.0 Hematemesis

== ENCOUNTER 2024-01-19 15:46 | Inpatient (IN) | payer MEDICAID ==
[~2024-01-19] VITALS: Ht 175.3 cm; Wt 105.5 kg
[~2024-01-19 15:46] MED LIST changes: +METH5TA PO; +NICO21PAT TD; +PROT1TAB2 PO; +SUCR1TA PO
[2024-01-19] MEDS ORDERED: traZODone 50 MG TAB PO PRN (16:25)
[2024-01-19] MEDS ORDERED: MAALOX 30 ML SUSP *UDC PO PRN (16:25)
[2024-01-19] MEDS ORDERED: ACETAMINOPHEN TAB 650MG DOSE (2X325MG) PO PRN (16:25)
[2024-01-19] MEDS ORDERED: MOM 30ML SUSPENSION UDC PO PRN (16:25)
[2024-01-19] MEDS: SUCRALFATE SUSP 1GM/10ML UD PO SCH (17:58)
[2024-01-19] MEDS: hydrOXYzine 50 MG TAB PO PRN (17:59)
[2024-01-19 18:07] VITALS: BP 145/89; TEMP 98.2; O2SAT 99
[2024-01-19] MEDS: QUEtiapine FUMARATE 200 MG TAB PO SCH (20:00)
[2024-01-19] MEDS: PANTOPRAZOLE 40MG TAB (PROTONIX) PO SCH (20:00)
[2024-01-19] MEDS: GABAPENTIN 300 MG CAP PO SCH (20:00)
[2024-01-19] MEDS: METHADONE 5MG TAB PO ONE (20:00)
[2024-01-20] MEDS: METHADONE 5MG TAB PO SCH (08:05)
[2024-01-20] MEDS: QUEtiapine FUMARATE 50MG TAB PO SCH (08:06)
[2024-01-20] MEDS: NICOTINE 21MG/24HR 1 EA TRANSDERMAL TD SCH (08:06)
[2024-01-20] MEDS: DULoxetine 20MG CAP (CYMBALTA) PO SCH ×2 (10:18→20:03)
[2024-01-20 15:36] VITALS: BP 164/102; TEMP 97.1; O2SAT 100
[2024-01-20] MEDS ORDERED: PILL CUTTER 1 EACH XX PRN (16:00)
[2024-01-20] MEDS: FUROSEMIDE 20 MG TAB PO ONE (16:15)
[2024-01-21] MEDS: amLODIPine 5 MG TAB PO SCH (09:01)
[2024-01-21 16:46] VITALS: BP 131/80; TEMP 98.1; O2SAT 99
[2024-01-21] MEDS: chlorproMAZINE INJ 50MG/2ML AMP IM STA (19:14)
[2024-01-21] MEDS: LORazepam 2 MG/ML 1ML VIAL IM STA (19:15)
[2024-01-21] MEDS: diphenhydrAMINE 50MG/ML VIAL IM STA (19:15)
[2024-01-21 19:30] VITALS: BP 142/82; TEMP 97.9; O2SAT 99
[2024-01-21 19:45] VITALS: BP 142/82; TEMP 97.9; O2SAT 99
[2024-01-22] MEDS: DULoxetine 20MG CAP (CYMBALTA) PO SCH (08:53)
[2024-01-22 08:55] VITALS: BP 146/86
[2024-01-22] MEDS ORDERED: HOME MED LIST COMPLETE! XX SCH (09:05)
[2024-01-22] MEDS: diphenhydrAMINE 25MG CAP PO PRN (21:08)
[2024-01-23 17:49] VITALS: BP 155/85; TEMP 97.7; O2SAT 99
[2024-01-24 07:47] VITALS: BP 134/96
[2024-01-24] MEDS ORDERED: AMLO1TAB24 PO (17:20)
[2024-01-24] MEDS ORDERED: SUCR1TA PO (17:20)
[2024-01-24] MEDS ORDERED: PROT1TAB2 PO (17:20)
[2024-01-24] MEDS ORDERED: QUET50TA4 PO (17:20)
[2024-01-24] MEDS ORDERED: DULO1CAP4 PO ×2 (17:20)
== END 2024-01-24 17:35 | disposition home or self-care (01) | DRG 754 ==
LOC: M PSY 17:18
PROVIDERS: ADMIT Psychiatry & Neurology Psychiatry; ATTEND Psychiatry & Neurology Psychiatry
DX: F32.9 Major depressive disorder, single episode, unspecified (principal); I10 Essential (primary) hypertension; R45.851 Suicidal ideations; F11.90 Opioid use, unspecified, uncomplicated; F14.90 Cocaine use, unspecified, uncomplicated; Z59.00 Homelessness unspecified; Z88.8 Allergy status to other drugs, medicaments and biological substances; Z79.899 Other long term (current) drug therapy; E02 Subclinical iodine-deficiency hypothyroidism; F12.90 Cannabis use, unspecified, uncomplicated; F15.90 Other stimulant use, unspecified, uncomplicated

== ENCOUNTER 2024-01-31 22:48 | Inpatient (IN) | payer MEDICAID ==
[~2024-01-31] VITALS: Ht 175.3 cm; Wt 104.7 kg
[~2024-01-31 22:48] MED LIST changes: +AMLO1TAB24 PO; +DULO1CAP4 PO; +QUET50TA4 PO
[2024-02-01] MEDS ORDERED: AMLO1TAB24 PO (07:23)
[2024-02-01] MEDS ORDERED: QUET50TA4 PO (07:23)
[2024-02-01] MEDS ORDERED: PANT40TA29 PO (07:23)
[2024-02-01] MEDS ORDERED: DULO1CAP4 PO (07:23)
[2024-02-01 07:37] LABS: BARBITURATES URINE NEGATIVE (NEGATIVE); BENZODIAZEPINES URINE NEGATIVE (NEGATIVE); METHADONE URINE NEGATIVE (NEGATIVE); OPIATES URINE NEGATIVE (NEGATIVE); PHENCYCLIDINE URINE NEGATIVE (NEGATIVE)
[2024-02-01 07:40] LABS: HEMATOCRIT 38.7 % (36.0-47.0); HEMOGLOBIN 12.8 g/dl (12.0-15.5); MEAN CORPUSCULAR HEMOGLOBIN 29.3 pg (27.0-33.0); MEAN CORPUSCULAR HGB CONC 33.1 g/dl (32.0-36.5); MEAN CORPUSCULAR VOLUME 88.6 fl (80.0-96.0); PLATELET COUNT, AUTOMATED 393 10^3/uL (150-450); RED BLOOD COUNT 4.37 10^6/uL (4.00-5.40); WHITE BLOOD COUNT 7.3 10^3/uL (4.0-10.0)
[2024-02-01 07:42] LABS: AMPHETAMINES LEVEL URINE POSITIVE (NEGATIVE); CANNABINOIDS URINE POSITIVE (NEGATIVE); COCAINE METABOLITE URINE POSITIVE (NEGATIVE)
[2024-02-01 08:00] LABS: ETHYL ALCOHOL (ETHANOL) < 0.003 % (0.000-0.010)
[2024-02-01 08:01] LABS: SALICYLATE LEVEL < 3.0 MG/DL (<30)
[2024-02-01 08:03] LABS: HCG, SERUM QUALITATIVE NEGATIVE (NEGATIVE)
[2024-02-01 08:04] LABS: ALBUMIN 3.3 G/DL (3.2-5.2); ALKALINE PHOSPHATASE 68 U/L (46-116); ALT/SGPT 25 U/L (7.0-40); AST/SGOT 21 U/L (<34); BILIRUBIN,DIRECT 0.2 MG/DL (<0.4); BILIRUBIN,TOTAL 0.5 MG/DL (0.3-1.2); BLOOD UREA NITROGEN 21 MG/DL (9-23); CALCIUM LEVEL 9.1 MG/DL (8.5-10.1); CARBON DIOXIDE LEVEL 25 MMOL/L (20-31); CHLORIDE LEVEL 108 MMOL/L (98-107); CREATININE FOR GFR 0.91 MG/DL (0.55-1.30); GLOMERULAR FILTRATION RATE > 60.0 (>60); GLUCOSE, FASTING 104 MG/DL (60-100); POTASSIUM SERUM 4.1 MMOL/L (3.5-5.1); SODIUM LEVEL 139 MMOL/L (136-145); THYROID STIMULATING HORMONE 0.965 uIU/ML (0.55-4.78); TOTAL PROTEIN 7.2 G/DL (5.7-8.2)
[2024-02-01] MEDS ORDERED: HOME MED LIST COMPLETE! XX SCH (08:20)
[2024-02-01] MEDS: GABAPENTIN 300 MG CAP PO ONE (11:16)
[2024-02-01] MEDS: QUEtiapine FUMARATE 50MG TAB PO ONE (11:16)
[2024-02-01] MEDS: PANTOPRAZOLE 40MG TAB (PROTONIX) PO ONE (11:16)
[2024-02-01] MEDS: amLODIPine 5 MG TAB PO ONE (11:19)
[2024-02-01] MEDS ORDERED: traZODone 50 MG TAB PO PRN (13:05)
[2024-02-01] MEDS ORDERED: MOM 30ML SUSPENSION UDC PO PRN (13:05)
[2024-02-01] MEDS ORDERED: diphenhydrAMINE 25MG CAP PO PRN (13:05)
[2024-02-01] MEDS ORDERED: MAALOX 30 ML SUSP *UDC PO PRN (13:05)
[2024-02-01] MEDS ORDERED: IBUPROFEN 400MG TAB PO PRN (13:05)
[2024-02-01] MEDS ORDERED: LOPERAMIDE 2 MG CAPLET PO PRN (21:00)
[2024-02-01] MEDS ORDERED: ONDANSETRON 4MG ORAL DISINTEGRATING TAB PO PRN (21:00)
[2024-02-01] MEDS: DULoxetine 20MG CAP (CYMBALTA) PO SCH (21:25)
[2024-02-01] MEDS: PANTOPRAZOLE 40MG TAB (PROTONIX) PO SCH (21:26)
[2024-02-01] MEDS: QUEtiapine FUMARATE 200 MG TAB PO SCH (21:26)
[2024-02-01] MEDS: GABAPENTIN 300 MG CAP PO SCH (21:26)
[2024-02-02 09:43] VITALS: BP 140/102
[2024-02-02] MEDS: QUEtiapine FUMARATE 50MG TAB PO SCH (09:50)
[2024-02-02] MEDS: BUPRENORPHINE/NALOXONE 2-0.5MG SUBLINGUAL TABLET(SUBOXONE) SL SCH (09:50)
[2024-02-02] MEDS: amLODIPine 5 MG TAB PO SCH (09:50)
[2024-02-02] MEDS ORDERED: NICOTINE 14 MG/24 HR TRANSDERMAL TD PRN (10:45)
[2024-02-02 15:20] VITALS: BP 142/82; TEMP 98.4; O2SAT 96
[2024-02-02 22:25] VITALS: O2SAT 99
[2024-02-03 16:37] VITALS: BP 133/86; TEMP 98.5; O2SAT 98
[2024-02-04] MEDS ORDERED: OLANZapine INTRAMUSCULAR 10MG VIAL IM ONE (16:00)
[2024-02-04] MEDS: diphenhydrAMINE 50MG/ML VIAL IM ONE (16:05)
[2024-02-04] MEDS: chlorproMAZINE INJ 50MG/2ML AMP IM STA (16:05)
[2024-02-04] MEDS: OLANZapine ORAL DISINTEGRATING TAB 5MG PO PRN (16:10)
[2024-02-04] MEDS: hydrOXYzine 50 MG TAB PO PRN (17:43)
[2024-02-04] MEDS: DOXEPIN 25 MG CAP PO SCH (20:39)
[2024-02-05 08:34] VITALS: BP 150/86
[2024-02-05] MEDS: QUEtiapine FUMARATE 100 MG TAB PO SCH (08:37)
[2024-02-05 17:20] VITALS: BP 118/62; TEMP 98.1; O2SAT 98
[2024-02-05] MEDS: diphenhydrAMINE 50MG CAP PO PRN (18:54)
[2024-02-05] MEDS: DOXEPIN 25 MG CAP PO SCH (19:57)
[2024-02-05] MEDS ORDERED: GLUCOSE 4 GM CHEW PO PRN (20:40)
[2024-02-05] MEDS ORDERED: GLUCAGON INJ 1MG VIAL SC PRN (20:40)
[2024-02-05] MEDS ORDERED: DEXTROSE 50% 50ML SYRINGE IV PRN (20:40)
[2024-02-06] MEDS ORDERED: INSULIN LISPRO (NovoLOG) PER UNIT SC SCH (07:30)
[2024-02-06] MEDS ORDERED: PILL CUTTER 1 EACH XX PRN (08:35)
[2024-02-06] MEDS: cloNIDine 0.1MG TABLET PO SCH (09:12)
[2024-02-06] MEDS: tiZANidine 4 MG TAB PO PRN (09:13)
[2024-02-06] MEDS ORDERED: QUET50TA4 PO (15:39)
[2024-02-06] MEDS ORDERED: CLONI1TA PO (15:39)
[2024-02-06 15:49] VITALS: BP 145/83; TEMP 97.4; O2SAT 98
[2024-02-06] MEDS: ACETAMINOPHEN TAB 650MG DOSE (2X325MG) PO PRN (17:34)
[2024-02-06] MEDS: QUEtiapine FUMARATE 200 MG TAB PO SCH (20:01)
[2024-02-07 06:51] VITALS: BP 152/90
== END 2024-02-07 07:42 | DRG 754 ==
LOC: M ED 22:48 → M ED INP 02-01 13:04 → M PSY 02-01 15:10
PROVIDERS: ADMIT Psychiatry & Neurology Psychiatry; ATTEND Psychiatry & Neurology Psychiatry
DX: F32.A Depression, unspecified (principal); I10 Essential (primary) hypertension; R45.851 Suicidal ideations; F43.10 Post-traumatic stress disorder, unspecified; F11.24 Opioid dependence with opioid-induced mood disorder; F12.20 Cannabis dependence, uncomplicated; F60.9 Personality disorder, unspecified; F15.10 Other stimulant abuse, uncomplicated; Z79.899 Other long term (current) drug therapy; Z88.8 Allergy status to other drugs, medicaments and biological substances; F17.200 Nicotine dependence, unspecified, uncomplicated; E03.9 Hypothyroidism, unspecified; Z62.810 Personal history of physical and sexual abuse in childhood; Z62.811 Personal history of psychological abuse in childhood; Z56.0 Unemployment, unspecified; Z65.2 Problems related to release from prison; Z81.8 Family history of other mental and behavioral disorders